=== PATIENT | male | born 1945 | race Caucasian/White ===

== ENCOUNTER 2017-04-01 07:47 | Emergency (ER) | payer MEDICARE, BC ==
--- NOTE | 2017-04-01 08:40 | EDM.PDOC ---
ED HPI GENERAL MEDICAL PROBLEM - General Chief Complaint: General Stated Complaint: 'feed wagon attacked me" Time Seen by Provider: 04/01/17 08:29 Source of Information: Reports: Patient History Limitations: Reports: Other (Very poor history from patient, cannot recall specific diagnoses or medications. ) - History of Present Illness INITIAL COMMENTS - FREE TEXT/NARRATIVE: Patient comes in complaining of soreness in left shoulder and left upper leg area that developed after an incident trying to move a feed wagon yesterday. Patient stated that while attempting to maneuver a feed wagon by pulling on a pole, the wagon got stuck and the pole jerked, knocking patient to the ground. No LOC. No significant initial pain per patient. Pain began to develop over an hour later. Worse when he woke up this morning. Points to left pectoral area and left upper leg/medial muscles when asked where he is sore. Earlier he had told nurse that pain was 8/10. Did have slight limp when ambulating, favoring left leg. Drove self to ER. Denies hitting head. No neck pain. No spinal pain. No pelvic pain. Denies bruising/abrasions/lacerations. Very vague about past medical history. Does not know medications. Says BP is usually around 130/80-frederic when asked as he was noted to have systolic reading of 170 in ER. Left Upper Chest Pain Score (Numeric/FACES): 8 - Related Data Allergies Allergy/AdvReac Type Severity Reaction Status Date / Time Unable to Assess Allergy Verified 04/01/17 09:33 Home Meds: Home Meds Carvedilol 12.5 mg PO BID 04/01/17 [History] Cyclobenzaprine [Flexeril] 10 mg PO BID PRN #8 tablet 04/01/17 [Rx] Finasteride 5 mg PO DAILY 04/01/17 [History] Hydroxychloroquine [Plaquenil] 200 mg PO DAILY 04/01/17 [History] Insulin Glarg,Human.Rec.Analog [LantUS Solostar] 16 units SQ BEDTIME 04/01/17 [ History] Levothyroxine [Synthroid] 88 mcg PO ACBREAKFAST 04/01/17 [History] Losartan Potassium 25 mg PO DAILY 04/01/17 [History] Omeprazole 20 mg PO DAILY 04/01/17 [History] Simvastatin [Zocor] 10 mg PO BEDTIME 04/01/17 [History] Tamsulosin [Flomax] 1 cap PO DAILY 04/01/17 [History] glipiZIDE [Glipizide Xl] 20 mg PO DAILY 04/01/17 [History] traMADol [Ultram] 50 mg PO Q6H PRN #16 tablet 04/01/17 [Rx] Past Medical History Cardiovascular History: Reports: CAD, High Cholesterol, Hypertension Gastrointestinal History: Reports: GERD Genitourinary History: Reports: BPH Endocrine/Metabolic History: Reports: Hypothyroidism, IDDM Social & Family History - Tobacco Use Smoking Status *Q: Never Smoker Second Hand Smoke Exposure: No - Caffeine Use Caffeine Use: Reports: None - Recreational Drug Use Recreational Drug Use: No ED ROS GENERAL - Review of Systems Review Of Systems: See Below Constitutional: Reports: No Symptoms HEENT: Reports: No Symptoms Respiratory: Reports: No Symptoms. Denies: Shortness of Breath, Pleuritic Chest Pain Cardiovascular: Reports: Chest Pain (left pectoral pain, worse with movement), Edema (chronic, stable per patient). Denies: Lightheadedness GI/Abdominal: Reports: No Symptoms : Reports: No Symptoms Musculoskeletal: Reports: Back Pain (diffuse soreness bilateral upper back, left pectoral pain, left upper leg pain), Muscle Pain, Muscle Stiffness. Denies : Neck Pain, Arm Pain, Hand Pain, Foot Pain, Joint Swelling Skin: Reports: No Symptoms Neurological: Reports: No Symptoms Psychiatric: Reports: No Symptoms ED EXAM, GENERAL - Physical Exam Exam: See Below Exam Limited By: No Limitations General Appearance: Alert, No Apparent Distress (resting comfortably in bed. ), Other (poor hygiene, disheveled appearance) Eye Exam: Bilateral Eye: EOMI, PERRL Ears: Normal External Exam Nose: No: Nasal Swelling, Nasal Drainage Throat/Mouth: Normal Lips, Normal Voice, No Airway Compromise Head: Atraumatic, Normocephalic. No: Facial Swelling, Facial Tenderness Neck: Normal Inspection, Supple, Non-Tender, Full Range of Motion Respiratory/Chest: No Respiratory Distress, No Accessory Muscle Use, Crackles ( very faint/sparse crackles at bases bilaterally), Other (Tender with palpation over left pectoral area). No: Rhonchi, Wheezing Cardiovascular: Normal Peripheral Pulses, Regular Rate, Rhythm, No Murmur Peripheral Pulses: 2+: Radial (L), Radial (R) GI/Abdominal: Normal Bowel Sounds, Soft, Non-Tender, No Distention, Hernia ( umbilical) (Male) Exam: Deferred Rectal (Males) Exam: Deferred Back Exam: Paraspinal Tenderness (mild discomfort with palpation of bilateral soft tissue in upper half thoracic area). No: CVA Tenderness (L), CVA Tenderness (R), Vertebral Tenderness Extremities: Normal Range of Motion, Non-Tender, Normal Capillary Refill, Pedal Edema (bilateral, mildly pitting), Other (Some tenderness with palpation of left hip adductors. Pelvis stable. No tenderness with palpation over points of hips. Mildly tender proximal quadriceps. Good ROM bilaterally shoulders and hips. ). No: Joint Swelling, Limited Range of Motion Neurological: Alert, Oriented, Normal Cognition, No Motor/Sensory Deficits, Abnormal Gait (favors left leg) Psychiatric: Normal Affect, Normal Mood Skin Exam: Warm, Dry, Intact, Normal Color EKG INTERPRETATION EKG Date: 04/01/17 Time: 08:00 Rhythm: NSR Rate (Beats/Min): 62 [place]: LAD-Left [place] Deviation P-Wave: Present QRS: Wide ST-T: Normal QT: Normal Comparison: NA - No Prior EKG Course - Vital Signs Last Recorded V/S: Last Vital Signs Temp 36.8 C 04/01/17 09:05 Pulse 62 04/01/17 09:05 Resp 20 04/01/17 09:05 BP 164/70 H 04/01/17 09:05 Pulse Ox 95 04/01/17 09:05 - Orders/Labs/Meds Orders: Active Orders 24 hr Category Date Time Status EKG Documentation Completion [RC] ASDIRECTED Care 04/01/17 08:10 Active Chest 2V [CR] Stat Exams 04/01/17 08:10 Taken - Radiology Interpretation Free Text/Narrative:: Chest xray showed now sign of pneumothorax. Compared to previous chest film. Old compression fracture noted on lateral. Increased heart size, pulmonary fibrosis noted. Minimal change director time noted. - Re-Assessments/Exams Free Text/Narrative Re-Assessment/Exam: Suspect contusions and soft tissue injury based on history and exam. No medications given to patient in ER as he has to drive home. Limited number of Tramadol and Flexeril given. Patient is to rest and avoid strenuous activity over the weekend. It is noted that his BP is a bit elevated today, suspect that is due to patient discomfort from the fall. However he will need to have his blood pressure rechecked next week to make certain it falls back to its usual level. This was discussed with the patient. He should also be seen again for today's complaint if no improvement is gained over the next 48 hours. He knows to return to the ER if there is sudden worsening of problems. Precautions reviewed prior to discharge. Patient is agreeable with this plan. Departure - Departure Time of Disposition: 08:56 Disposition: Home, Self-Care 01 Condition: Good Clinical Impression: Multiple contusions Fall Qualifiers: Encounter type: initial encounter Qualified Code(s): W19.XXXA - Unspecified fall, initial encounter Hypertension Qualifiers: Hypertension type: essential hypertension Qualified Code(s): I10 - Essential ( primary) hypertension - Discharge Information Prescriptions: Cyclobenzaprine [Flexeril] 10 mg PO BID PRN #8 tablet PRN Reason: Muscle Spasm traMADol [Ultram] 50 mg PO Q6H PRN #16 tablet PRN Reason: Pain Instructions: Contusion Referrals: Messi Heredia PA [Primary Care Provider] - Forms: ED Department Discharge Additional Instructions: Rest, gentle activity today and tomorrow. Ice sore areas. Follow up Monday or Monday with your clinic if pain has not improved. Follow up in the ER if you have sudden worsening problems. - My Orders Last 24 Hours: My Active Orders 04/01/17 08:10 EKG Documentation Completion [RC] ASDIRECTED Chest 2V [CR] Stat - Assessment/Plan Last 24 Hours: My Active Orders 04/01/17 08:10 EKG Documentation Completion [RC] ASDIRECTED Chest 2V [CR] Stat
[2017-04-01 09:39] VITALS: BP 164/70
== END 2017-04-01 09:22 | disposition home or self-care (01) ==
LOC: LL.ED 07:47
DX: T14.8 Other injury of unspecified body region (principal); I10 Essential (primary) hypertension; E78.00 Pure hypercholesterolemia, unspecified; E11.9 Type 2 diabetes mellitus without complications; K21.9 Gastro-esophageal reflux disease without esophagitis; E03.9 Hypothyroidism, unspecified; I25.10 Atherosclerotic heart disease of native coronary artery without angina pectoris; Z79.4 Long term (current) use of insulin; Z79.84 Long term (current) use of oral hypoglycemic drugs; Z79.899 Other long term (current) drug therapy
CPT/HCPCS: 71020; 93005; 93010; 99284

== ENCOUNTER 2017-06-22 11:30 | Day surgery (SDC) | payer MEDICARE, BC ==
[~2017-06-22 11:30] MED LIST: Lactated Ringers 1,000 ML IV SCH; Sodium Chloride 0.9% 10 ML Syringe FLUSH PRN
--- NOTE | 2017-06-22 12:25 | PCM.HPR ---
H & P Addendum review - H & P Addendum Review Date of Original H & P: 06/06/17 Date Reviewed: 06/22/17 Time Reviewed: 12:25 Patient was Examined: No Changes
[2017-06-22] MEDS ORDERED: Propofol 200 MG/20 ML SDV ONE ×2 (12:29→12:32)
[2017-06-22] MEDS ORDERED: fentaNYL 100 MCG/2 ML SDV ONE ×2 (12:29→12:32)
[2017-06-22] MEDS ORDERED: Midazolam 1 MG/ML 2 ML SDV ONE ×2 (12:29→12:32)
--- NOTE | 2017-06-22 13:11 | PCM.OPNOTE ---
- General Post-Op/Procedure Note Date of Surgery/Procedure: 06/22/17 Operative Procedure(s): EGD. Colonoscopy Findings: Chronic Gastritis Normal Colon Pre Op Diagnosis: GERD. Colon Screening Post-Op Diagnosis: Same Anesthesia Technique: BRODERICK Primary Surgeon: Cesar Purvis Anesthesia Provider: Safia Jensen Complications: None Condition: Good
[2017-06-22 13:24] VITALS: BP 150/62
--- NOTE | 2017-06-22 19:49 | OR ---
Date of Procedure: 06/22/2017 PREOPERATIVE DIAGNOSES: 1. Gastroesophageal reflux disease. 2. Colon screening. POSTOPERATIVE DIAGNOSES: 1. Chronic gastritis. 2. Normal colonoscopy. PROCEDURES PERFORMED: 1. EGD. 2. Colonoscopy. ANESTHESIA: IV sedation. DESCRIPTION OF PROCEDURE: The patient was brought to the procedure room, where he was placed on his left side and IV sedation administered. Digital rectal exam was performed, which was normal. Colonoscope was inserted and advanced to the level of the cecum without difficulty. Cecal position was confirmed by identifying the appendiceal lumen and ileocecal valve. Prep was good, and surfaces were well visualized. Upon withdrawing the scope, the ascending, transverse, and descending colon were normal in appearance. Sigmoid colon and rectum were normal. Retroflexion was normal. Air was removed, and the scope withdrawn. The patient tolerated this portion of the procedure well. Next, upper endoscopy was performed after oral bite block was placed. Upper endoscope was advanced into the esophagus under direct vision without difficulty. Vocal cords were viewed and were normal. Scope was advanced to the third portion of the duodenum. Duodenum and pylorus were normal. Antrum was normal. Body of the stomach had multiple hyperplastic polyps consistent with some chronic gastritis and proton pump inhibitor use. No ulcers, erosions, or other abnormalities were noted. Retroflexion was normal. Air was removed, and the scope withdrawn through the esophagus, which appeared normal. There was no evidence of reflux esophagitis. The patient tolerated the procedures well and returned to recovery in stable condition. The patient's symptoms are well controlled on his current medications. We will have him remain on them. I do not feel any further colon screening is necessary since he will be 81 in 10 years. TOMA REYNA MD /[id number]
== END 2017-06-22 14:40 | disposition home or self-care (01) ==
LOC: LL.SDS 11:30
PROVIDERS: ATTEND Surgery
DX: Z12.11 Encounter for screening for malignant neoplasm of colon (principal); K31.7 Polyp of stomach and duodenum; I10 Essential (primary) hypertension; E11.42 Type 2 diabetes mellitus with diabetic polyneuropathy; J44.9 Chronic obstructive pulmonary disease, unspecified; I25.10 Atherosclerotic heart disease of native coronary artery without angina pectoris; N40.0 Benign prostatic hyperplasia without lower urinary tract symptoms; K21.9 Gastro-esophageal reflux disease without esophagitis; E03.8 Other specified hypothyroidism; E06.3 Autoimmune thyroiditis; E03.0 Congenital hypothyroidism with diffuse goiter; Z88.8 Allergy status to other drugs, medicaments and biological substances; Z91.018 Allergy to other foods; Z91.010 Allergy to peanuts; Z95.1 Presence of aortocoronary bypass graft; Z98.890 Other specified postprocedural states; Z79.82 Long term (current) use of aspirin; Z79.899 Other long term (current) drug therapy; Z79.4 Long term (current) use of insulin
CPT/HCPCS: 43235; G0121; J2250; J2704; J3010; J7120; 00740

== ENCOUNTER 2017-08-02 07:51 | Observation (INO) | payer MEDICARE, BC ==
[~2017-08-02 07:51] MED LIST changes: -Lactated Ringers 1,000 ML IV SCH
[2017-08-02] MEDS ORDERED: Lactated Ringers 1,000 ML IV SCH (08:00)
[2017-08-02] MEDS ORDERED: Propofol 200 MG/20 ML SDV ONE ×2 (08:20→08:30)
[2017-08-02] MEDS ORDERED: Midazolam 1 MG/ML 2 ML SDV ONE ×2 (08:20→08:30)
[2017-08-02] MEDS ORDERED: fentaNYL 100 MCG/2 ML SDV ONE ×2 (08:20→08:30)
[2017-08-02] MEDS ORDERED: ceFAZolin 1 GM Vial ONE (08:30)
[2017-08-02] MEDS ORDERED: Bupivacaine 0.75%/D5W 2 ML Amp ONE (08:30)
[2017-08-02] MEDS ORDERED: Lidocaine 2% HCl 11 ML Jelly Filled Syringe TOP ONE (09:15)
[2017-08-02] MEDS ORDERED: Ondansetron 4 MG/2 ML SDV IVPUSH PRN (14:00)
[2017-08-02] MEDS ORDERED: Morphine 2 MG/ML Syringe IVPUSH PRN (14:00)
[2017-08-02] MEDS ORDERED: Sodium Chloride 0.9% 1,000 ML IV SCH (14:00)
--- NOTE | 2017-08-02 14:51 | PCM.HP ---
H&P History of Present Illness - General Date of Service: 08/02/17 Admit Problem/Dx: Admission Diagnosis/Problem Admission Diagnosis/Problem Transurethral prostatectomy Source of Information: Patient History Limitations: Reports: No Limitations - History of Present Illness Initial Comments - Free Text/Narative: Patient admitted for overnight observation after TURP procedure performed by . - Related Data Allergies/Adverse Reactions: Allergies Allergy/AdvReac Type Severity Reaction Status Date / Time peanut Allergy Severe Anaphylactic Verified 08/02/17 08:20 Shock atorvastatin Allergy Muscle Verified 08/02/17 08:20 Aches pravastatin Allergy Muscle Verified 08/02/17 08:20 Aches lettuce Allergy Severe GI Uncoded 08/02/17 08:20 intolerence, Diarrhea nuts Allergy Severe Airway Uncoded 08/02/17 08:20 Tightness Home Medications: Home Meds Carvedilol 12.5 mg PO BID 04/01/17 [History] Finasteride 5 mg PO DAILY 04/01/17 [History] Hydroxychloroquine [Plaquenil] 200 mg PO BID 04/01/17 [History] Levothyroxine [Synthroid] 88 mcg PO ACBREAKFAST 04/01/17 [History] Omeprazole 20 mg PO DAILY 04/01/17 [History] Simvastatin [Zocor] 10 mg PO BEDTIME 04/01/17 [History] glipiZIDE [Glipizide Xl] 20 mg PO DAILY 04/01/17 [History] Furosemide [Lasix] 20 mg PO 08,12 06/22/17 [History] Multivitamin [Multi-Day Vitamins] 1 each PO DAILY 06/22/17 [History] Nitroglycerin 0.4 mg SL ASDIRECTED PRN 06/22/17 [History] Hydrocodone/Acetaminophen [Hydrocodon-Acetaminophen 5-325] 1 each PO Q8H PRN 04/10 [History] Insulin Detemir [Levemir] 16 unit SUBCUT BEDTIME 08/01/17 [History] Losartan [Cozaar] 25 mg PO DAILY 08/01/17 [History] Lactated Ringers [Ringers, Lactated] 1,000 ml IV ASDIRECTED bag 08/02/17 [Rx] Sodium Chloride 0.9% [Saline Flush] 10 ml FLUSH ASDIRECTED PRN syringe [Rx] Past Medical History HEENT History: Reports: Other (See Below) Other HEENT History: Has reading glasses. Missing multiplle teeth. No dentures. Pt. has difficulty hearing. No hearing aides Cardiovascular History: Reports: Bypass, CAD, Hypertension, [place] Respiratory History: Reports: COPD Gastrointestinal History: Reports: Diverticulosis Genitourinary History: Reports: Retention, Urinary Musculoskeletal History: Reports: Osteoarthritis Neurological History: Reports: Neuropathy, Peripheral Psychiatric History: Reports: None Endocrine/Metabolic History: Reports: Diabetes, Type II Hematologic History: Reports: None Immunologic History: Reports: None Oncologic (Cancer) History: Reports: Squamous Cell Carcinoma Dermatologic History: Reports: Other (See Below) Other Dermatologic History: squamous cell - Past Surgical History HEENT Surgical History: Reports: Cataract Surgery Cardiovascular Surgical History: Reports: Coronary Artery Bypass GI Surgical History: Reports: Colonoscopy Social & Family History - Tobacco Use Smoking Status *Q: Never Smoker Second Hand Smoke Exposure: No - Caffeine Use Caffeine Use: Reports: Coffee - Recreational Drug Use Recreational Drug Use: No H&P Review of Systems - Review of Systems: Review Of Systems: ROS reveals no pertinent complaints other than HPI. Exam - Exam Exam: See Below - Vital Signs Vital Signs: Last Vital Signs Temp 35.5 C 08/02/17 10:00 Pulse 62 08/02/17 10:50 Resp 16 08/02/17 10:50 BP 150/74 H 08/02/17 10:50 Pulse Ox 95 08/02/17 10:50 Weight: 108.862 kg - Exam General: Alert, Oriented, Cooperative HEENT: Conjunctiva Clear, EACs Clear, EOMI, Hearing Intact, Mucosa Moist & [place] , Nares Patent, Pupils Equal, Pupils Reactive Neck: Supple, Trachea Midline Lungs: Normal Respiratory Effort, Other (very faint, fine rales inspiration bilaterally. ) Cardiovascular: Regular Rate, Regular Rhythm GI/Abdominal Exam: Normal Bowel Sounds, Soft, Non-Tender, No Distention (Male) Exam: Deferred Rectal (Males) Exam: Deferred Back Exam: Normal Inspection Extremities: Normal Range of Motion, Non-Tender, Normal Capillary Refill, Other (Has darkening coloration of lower extremities/dry skin/loss of hair consistent with peripheral vascular changes) Peripheral Pulses: 2+: Radial (L), Radial (R), Dorsalis Pedis (L), Dorsalis Pedis (R) Skin: Warm, Dry, Intact Neuro Extensive - Mental Status: Alert, Oriented x3, Normal Mood/Affect, Normal Cognition, Memory Intact Psychiatric: Alert, Normal Affect, Normal Mood - Patient Data Lab Results Last 24 hrs: Laboratory Results - last 24 hr 08/02/17 Range/Units 08:40 POC Glucose 101 (65-110) mg/dl *Q Meaningful Use (ADM) - VTE *Q VTE Criteria *Q: - Stroke *Q Stroke Criteria *Q: - AMI *Q AMI Criteria *Q: - Problem List (1) S/P TURP SNOMED Code(s): 660048089 ICD Code: Z90.79 - ACQUIRED ABSENCE OF OTHER GENITAL ORGAN(S) Status: Acute Priority: High Current Visit: Yes Onset Date: 08/02/17 Problem Details: S/P TURP performed today. wants patient monitored overnight. Continuous bladder irrigation during stay. Elizabeth can be removed tomorrow prior to discharge home. (2) IDDM (insulin dependent diabetes mellitus) SNOMED Code(s): 03851066 ICD Code: E11.9 - TYPE 2 DIABETES MELLITUS WITHOUT COMPLICATIONS; Z79.4 - DETENTION (CURRENT) USE OF INSULIN Status: Chronic Priority: Low Current Visit: No Problem Details: Stable by history (3) GERD (gastroesophageal reflux disease) SNOMED Code(s): 828818646 ICD Code: K21.9 - GASTRO-ESOPHAGEAL REFLUX DISEASE WITHOUT ESOPHAGITIS Status: Chronic Priority: Low Current Visit: No Problem Details: Stable by history Qualifiers: Esophagitis presence: esophagitis presence not specified Qualified Code(s) : K21.9 - Gastro-esophageal reflux disease without esophagitis (4) CAD (coronary artery disease) SNOMED Code(s): 69332255 ICD Code: I25.10 - ATHSCL HEART DISEASE OF [place] CORONARY ARTERY W/O ANG PCTRS Status: Chronic Priority: Low Current Visit: No Problem Details: stable by history Qualifiers: Coronary Disease-Associated Artery/Lesion type: bypass graft (5) Dyslipidemia SNOMED Code(s): 178047312 ICD Code: E78.5 - HYPERLIPIDEMIA, UNSPECIFIED Status: Chronic Priority: Low Current Visit: No Problem Details: Stable by history (6) Rheumatoid arthritis SNOMED Code(s): 14300700 ICD Code: M06.9 - RHEUMATOID ARTHRITIS, UNSPECIFIED Status: Chronic Priority: Low Current Visit: No Problem Details: Stable by history Qualifiers: Rheumatoid factor presence: unspecified presence Laterality: unspecified laterality (7) Hypertension SNOMED Code(s): 66839159 ICD Code: I10 - ESSENTIAL (PRIMARY) HYPERTENSION Status: Chronic Priority : Low Current Visit: No Problem Details: Stable by history Qualifiers: Hypertension type: essential hypertension Qualified Code(s): I10 - Essential (primary) hypertension Problem List Initiated/Reviewed/Updated: Yes Orders Last 24hrs: Active Orders 24 hr Category Date Time Status Admission Status [Patient Status] [ADT] Routine ADT 08/02/17 11:53 Active Accu Check [Blood Glucose Check, Bedside] [RC] Care 08/02/17 13:57 Active QIDACANDBED Antiembolic Devices [RC] PER UNIT ROUTINE Care 08/02/17 13:58 Active Blood Glucose Check, Bedside [RC] ONETIME Care 08/02/17 08:00 Active Peripheral IV Care [RC] . DIRECTED Care 08/01/17 15:16 Active Verify Patient Consent Obtain [RC] ASDIRECTED Care 08/02/17 08:00 Active Vital Signs [RC] Q4HR Care 08/02/17 14:00 Active ADA Diabetic [[place] [employer] Diet] [DIET Diet 08/02/17 Dinner Active ] Low Sodium [Sodium Restricted Diet] [DIET] Diet 08/02/17 Dinner Active Lactated Ringers [Ringers, Lactated] 1,000 ml Med 08/02/17 08:00 Active IV ASDIRECTED Morphine Med 08/02/17 14:00 Active 2 mg IVPUSH Q2H PRN Ondansetron [Zofran] Med 08/02/17 14:00 Active 4 mg IVPUSH Q6H PRN Sodium Chloride 0.9% [Normal Saline] 1,000 ml Med 08/02/17 14:00 Active IV ASDIRECTED Sodium Chloride 0.9% [Saline Flush] Med 08/01/17 15:13 Active 10 ml FLUSH ASDIRECTED PRN Peripheral IV Insertion Adult [OM.PC] Routine Oth 08/02/17 08:00 Ordered ASHLEY Hose [Antiembolic Hose] [OM.PC] Routine Oth 08/02/17 13:58 Ordered Medication Orders Lactated Ringer's (Ringers, Lactated) 1,000 mls @ 70 mls/hr IV ASDIRECTED [facility] Last Admin: 08/02/17 08:38 Dose: 70 mls/hr Sodium Chloride (Normal Saline) 1,000 mls @ 75 mls/hr IV ASDIRECTED [facility] Morphine Sulfate (Morphine) 2 mg IVPUSH Q2H PRN PRN Reason: Pain Ondansetron HCl (Zofran) 4 mg IVPUSH Q6H PRN PRN Reason: Nausea Sodium Chloride (Saline Flush) 10 ml FLUSH ASDIRECTED PRN PRN Reason: Keep Vein Open Assessment/Plan Comment:: Continuous bladder irrigation overnight. Anticipate discharge home tomorrow. Pain control.
[2017-08-02] MEDS ORDERED: Nitroglycerin 0.4 MG Tab.SL SL PRN (15:00)
[2017-08-02] MEDS: Acetaminophen/HYDROcodone 325-5 MG Tab PO PRN (16:41)
[2017-08-02] MEDS: Hydroxychloroquine 200 MG Tab PO SCH (17:47)
[2017-08-02] MEDS: Carvedilol 12.5 MG Tab PO SCH (17:47)
[2017-08-02] MEDS: Simvastatin 10 MG Tab PO SCH (20:40)
[2017-08-02] MEDS: Insulin Detemir 100 Units/ML 3 ML Pen SUBCUT SCH (20:41)
[2017-08-02] MEDS: Acetaminophen 325 MG Tab PO PRN (22:11)
[2017-08-03] MEDS: Acetaminophen/HYDROcodone 325-5 MG Tab PO PRN (02:13)
[2017-08-03] MEDS: Levothyroxine 88 MCG Tab PO SCH (07:40)
[2017-08-03] MEDS: Carvedilol 12.5 MG Tab PO SCH ×2 (07:40→17:39)
[2017-08-03] MEDS: Losartan 50 MG Tab PO SCH (07:41)
[2017-08-03] MEDS: glipiZIDE 5 MG Tab.ER PO SCH (07:42)
[2017-08-03] MEDS: Hydroxychloroquine 200 MG Tab PO SCH ×2 (07:42→17:39)
[2017-08-03] MEDS: Omeprazole 20 MG Cap.CR PO SCH (07:42)
[2017-08-03] MEDS: Furosemide 20 MG Tab PO SCH ×2 (07:42→11:10)
[2017-08-03] MEDS: Multivitamin Tab PO SCH (07:43)
[2017-08-03] MEDS: Finasteride 5 MG Tab PO SCH (07:43)
[2017-08-03] MEDS: Acetaminophen 325 MG Tab PO PRN (08:18)
--- NOTE | 2017-08-03 12:17 | OR ---
Date of Procedure: 08/02/2017 PREOPERATIVE DIAGNOSIS: Urinary retention. POSTOPERATIVE DIAGNOSIS: Urinary retention. PROCEDURE: Transurethral resection of the prostate. ANESTHESIA: Spinal. COMPLICATION: None. SPECIMEN: Prostate. DRAINS: The 22-Serbian three-way Elizabeth catheters to CBI. BLOOD LOSS: Approximately, 100 mL. WHAT WAS DONE: The patient was placed on the operating table in the lithotomy position under spinal anesthesia. He was prepped and draped sterilely. Xylocaine gel was injected per urethra. A 27-Serbian continuous-flow resectoscope sheath was inserted. He was noted to have a modest prostate with a very large median bar. I began at the 12 o'clock position and found the capsular fibers. I followed not so much the capsule as the fibers of the bladder neck counter-clockwise, until I encountered the median bar. I then took down the median bar, found the circular fibers at the bladder neck, and smoothened the floor. I then just verified the surrounding tissues, debulked, and smoothened the contours of right and lateral lobes. I then tapered the apex. The bladder was irrigated free of fragments. Visual inspection showed no fragments remaining. I did very methodically through the prostate inspect and cauterize. I did resect some additional apical tissue, and those strips were removed. The resectoscope was removed. The Elizabeth catheter was inserted using the Mandarin catheter guide, placed irrigation under gravity. He tolerated this procedure without difficulty. TOMA Hart MD /[id number]
--- NOTE | 2017-08-03 17:41 | PCM.PN ---
- General Info Date of Service: 08/03/17 Admission Dx/Problem (Free Text): Admission Diagnosis/Problem Admission Diagnosis/Problem Transurethral prostatectomy Subjective Update: Patient feels about the same as yesterday. Uncomfortable due to recent TURP. Functional Status: Reports: Pain Controlled, Tolerating Diet, Ambulating. Denies: Urinating - Review of Systems General: Reports: Fatigue. Denies: Fever HEENT: Reports: No Symptoms Pulmonary: Reports: No Symptoms Cardiovascular: Reports: No Symptoms Gastrointestinal: Reports: No Symptoms Genitourinary: Reports: Retention (unable to urinate after Elizabeth pulled) Musculoskeletal: Reports: No Symptoms Skin: Reports: No Symptoms Neurological: Reports: No Symptoms Psychiatric: Reports: No Symptoms - Patient Data Vitals - Most Recent: Last Vital Signs Temp 37.3 C 08/03/17 17:02 Pulse 81 08/03/17 17:02 Resp 16 08/03/17 17:02 BP 65/33 L 08/03/17 17:03 Pulse Ox 95 08/03/17 17:02 Weight - Most Recent: 108.862 kg I&O - Last 24 Hours: Intake & Output 08/03/17 08/03/17 08/03/17 06:59 14:59 22:59 Intake Total 1508 898 Output Total 1250 650 Balance 258 248 Lab Results Last 24 Hours: Laboratory Results - last 24 hr 08/02/17 08/03/17 08/03/17 Range/Units 20:40 07:39 11:09 POC Glucose 265 H* 92 213 H (65-110) mg/dl 08/03/17 Range/Units 17:28 POC Glucose 204 H (65-110) mg/dl Med Orders - Current: Current Medications Acetaminophen (Tylenol) 650 mg PO Q4H PRN PRN Reason: Pain Last Admin: 08/03/17 08:18 Dose: 650 mg Hydrocodone Bitart/Acetaminophen ([place] 325-5 Mg) 1 tab PO Q8H PRN PRN Reason: Pain Last Admin: 08/03/17 02:13 Dose: 1 tab Carvedilol (Coreg) 12.5 mg PO BID [facility] Last Admin: 08/03/17 07:40 Dose: 12.5 mg Finasteride (Proscar) 5 mg PO DAILY [facility] Last Admin: 08/03/17 07:43 Dose: 5 mg Furosemide (Lasix) 20 mg PO BIDDIURETIC [facility] Last Admin: 08/03/17 11:10 Dose: 20 mg Glipizide (Glucotrol Xl) 20 mg PO DAILY [facility] Last Admin: 08/03/17 07:42 Dose: 20 mg Hydroxychloroquine Sulfate (Plaquenil) 200 mg PO BID [facility] Last Admin: 08/03/17 07:42 Dose: 200 mg Insulin Detemir (Levemir) 16 unit SUBCUT BEDTIME [facility] Last Admin: 08/02/17 20:41 Dose: 16 unit Levothyroxine Sodium (Synthroid) 88 mcg PO ACBREAKFAST [facility] Last Admin: 08/03/17 07:40 Dose: 88 mcg Losartan Potassium (Cozaar) 25 mg PO DAILY [facility] Last Admin: 08/03/17 07:41 Dose: 25 mg Morphine Sulfate (Morphine) 2 mg IVPUSH Q2H PRN PRN Reason: Pain Multivitamins/Minerals/Vitamin C (Tab-A-Ha) 1 tab PO DAILY [facility] Last Admin: 08/03/17 07:43 Dose: 1 tab Nitroglycerin (Nitrostat) 0.4 mg SL ASDIRECTED PRN PRN Reason: Chest Pain Omeprazole (Omeprazole) 20 mg PO DAILY [facility] Last Admin: 08/03/17 07:42 Dose: 20 mg Ondansetron HCl (Zofran) 4 mg IVPUSH Q6H PRN PRN Reason: Nausea Simvastatin (Zocor) 10 mg PO BEDTIME [facility] Last Admin: 08/02/17 20:40 Dose: 10 mg Sodium Chloride (Saline Flush) 10 ml FLUSH ASDIRECTED PRN PRN Reason: Keep Vein Open Discontinued Medications Bupivacaine HCl/Dextrose ([place] 0.75% Spinal) 1.6 ml .ROUTE .STK-MED ONE Stop: 08/02/17 08:31 Cefazolin Sodium (Ancef) 2 gm .ROUTE .STK-MED ONE Stop: 08/02/17 08:31 Fentanyl (Sublimaze) Confirm Administered Dose 100 mcg .ROUTE .STK-MED ONE Stop: 08/02/17 08:21 Last Admin: 08/02/17 14:04 Dose: Not Given Fentanyl (Sublimaze) 100 mcg .ROUTE .STK-MED ONE Stop: 08/02/17 08:31 Lactated Ringer's (Ringers, Lactated) 1,000 mls @ 70 mls/hr IV ASDIRECTED [facility] Last Admin: 08/02/17 08:38 Dose: 70 mls/hr Sodium Chloride (Normal Saline) 1,000 mls @ 75 mls/hr IV ASDIRECTED [facility] Last Admin: 08/02/17 18:59 Dose: 75 mls/hr Lidocaine HCl (Glydo) 11 ml TOP .STK-MED ONE Stop: 08/02/17 09:16 Last Admin: 08/02/17 09:15 Dose: 11 ml Lidocaine HCl (Xylocaine-Mpf 1%) 2 ml .ROUTE .STK-MED ONE Stop: 08/02/17 08:31 Midazolam HCl (Versed 1 Mg/Ml) Confirm Administered Dose 2 mg .ROUTE .STK-MED ONE Stop: 08/02/17 08:21 Last Admin: 08/02/17 14:05 Dose: Not Given Midazolam HCl (Versed 1 Mg/Ml) 2 mg .ROUTE .STK-MED ONE Stop: 08/02/17 08:31 Propofol (Diprivan 20 Ml) Confirm Administered Dose 400 mg .ROUTE .STK-MED ONE Stop: 08/02/17 08:21 Last Admin: 08/02/17 14:04 Dose: Not Given Propofol (Diprivan 20 Ml) 400 mg .ROUTE .STK-MED ONE Stop: 08/02/17 08:31 - Exam Quality Assessment: Urine Catheter General: Alert, Oriented, Cooperative, No Acute Distress HEENT: Pupils Equal, Pupils Reactive, EOMI, Mucous Membr. Moist/[place] Neck: Supple Lungs: Clear to Auscultation, Normal Respiratory Effort Cardiovascular: Regular Rate, Regular Rhythm GI/Abdominal Exam: Normal Bowel Sounds, Soft, Non-Tender, No Distention, No Mass (Male) Exam: Deferred Back Exam: No: CVA Tenderness (L), CVA Tenderness (R) Extremities: Normal Inspection, Normal Range of Motion, Non-Tender, No Pedal Edema, Normal Capillary Refill Peripheral Pulses: 2+: Radial (L), Radial (R) Skin: Warm, Dry Neurological: No New Focal Deficit Psy/Mental Status: Alert, Normal Affect, Normal Mood - Problem List & Annotations (1) S/P TURP SNOMED Code(s): 040938313 Code(s): Z90.79 - ACQUIRED ABSENCE OF OTHER GENITAL ORGAN(S) Status: Acute Priority: High Current Visit: Yes Onset Date: 08/02/17 Annotation/ Comment:: Elizabeth removed today. Patient unable to void. Needed to place new Elizabeth. Will reattempt Elizabeth removal tomorrow. 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 Status: Chronic Priority: Low Current Visit: No Annotation/Comment:: Stable by history (3) GERD (gastroesophageal reflux disease) SNOMED Code(s): 372468191 Code(s): K21.9 - GASTRO-ESOPHAGEAL REFLUX DISEASE WITHOUT ESOPHAGITIS Status: Chronic Priority: Low Current Visit: No Qualifiers: Esophagitis presence: esophagitis presence not specified Qualified Code(s) : K21.9 - Gastro-esophageal reflux disease without esophagitis Annotation/Comment:: Stable by history (4) CAD (coronary artery disease) SNOMED Code(s): 16917031 Code(s): I25.10 - ATHSCL HEART DISEASE OF [place] CORONARY ARTERY W/O ANG PCTRS Status: Chronic Priority: Low Current Visit: No Qualifiers: Coronary Disease-Associated Artery/Lesion type: bypass graft Annotation/Comment:: stable by history (5) Dyslipidemia SNOMED Code(s): 260822475 Code(s): E78.5 - HYPERLIPIDEMIA, UNSPECIFIED Status: Chronic Priority: Low Current Visit: No Annotation/Comment:: Stable by history (6) Rheumatoid arthritis SNOMED Code(s): 69280797 Code(s): M06.9 - RHEUMATOID ARTHRITIS, UNSPECIFIED Status: Chronic Priority: Low Current Visit: No Qualifiers: Rheumatoid factor presence: unspecified presence Laterality: unspecified laterality Annotation/Comment:: Stable by history (7) Hypertension SNOMED Code(s): 88380010 Code(s): I10 - ESSENTIAL (PRIMARY) HYPERTENSION Status: Chronic Priority : Low Current Visit: No Qualifiers: Hypertension type: essential hypertension Qualified Code(s): I10 - Essential (primary) hypertension Annotation/Comment:: Stable by history - Problem List Review Problem List Initiated/Reviewed/Updated: Yes - My Orders Last 24 Hours: My Active Orders 08/02/17 18:00 Carvedilol [Coreg] 12.5 mg PO BID Hydroxychloroquine [Plaquenil] 200 mg PO BID 08/02/17 20:00 Insulin Detemir [Levemir] 16 unit SUBCUT BEDTIME Simvastatin [Zocor] 10 mg PO BEDTIME 08/02/17 21:54 Acetaminophen [Tylenol] 650 mg PO Q4H PRN 08/02/17 Dinner ADA Diabetic [[place] [employer] Diet] [DIET] Low Sodium [Sodium Restricted Diet] [DIET] 08/03/17 07:30 Levothyroxine [Synthroid] 88 mcg PO ACBREAKFAST 08/03/17 08:00 Finasteride [Proscar] 5 mg PO DAILY Furosemide [Lasix] 20 mg PO BIDDIURETIC Losartan [Cozaar] 25 mg PO DAILY Multivitamins [Tab-A-Ha] 1 tab PO DAILY Omeprazole 20 mg PO DAILY glipiZIDE [Glucotrol XL] 20 mg PO DAILY 08/03/17 17:33 Urinary Catheter Assessment [RC] ASDIRECTED UA W/MICROSCOPIC [URIN] Routine 08/03/17 17:45 Elizabeth Catheter Insertion [Insert Urinary Catheter] [OM.PC] Q24H - Assessment Assessment:: 1 day s/p TURP. Continued issues with urinary retention. Unable to void on own after removal of Elizabeth this morning. Bladder scan showed more than 1000ml of retained urine. Straight cath performed. Patient observed. Found to again not be able to void. Elizabeth put back in place, over 1L of urine output immediately. - Plan Plan:: Keep Elizabeth in place overnight. Trial patient without Elizabeth again tomorrow. If he continues to be unable to void, plan at this time is to contact Urology and arrange followup on Monday as well as continued use of Elizabeth in patient over the weekend while swelling form TURP continues to improve. Patient is wearing TEDS and is ambulating. No Lovenox started at this time given planned discharge home tomorrow.
[2017-08-03] MEDS: Insulin Detemir 100 Units/ML 3 ML Pen SUBCUT SCH (20:21)
[2017-08-03] MEDS: Simvastatin 10 MG Tab PO SCH (20:23)
[2017-08-04] MEDS: Finasteride 5 MG Tab PO SCH (07:11)
[2017-08-04] MEDS: Levothyroxine 88 MCG Tab PO SCH (07:11)
[2017-08-04] MEDS: Multivitamin Tab PO SCH (07:12)
[2017-08-04] MEDS: Hydroxychloroquine 200 MG Tab PO SCH (07:12)
[2017-08-04] MEDS: Omeprazole 20 MG Cap.CR PO SCH (07:12)
[2017-08-04] MEDS: Furosemide 20 MG Tab PO SCH ×2 (07:12→11:05)
[2017-08-04] MEDS: glipiZIDE 5 MG Tab.ER PO SCH (07:12)
[2017-08-04] MEDS: Losartan 50 MG Tab PO SCH (07:13)
[2017-08-04] MEDS: Carvedilol 12.5 MG Tab PO SCH (07:17)
[2017-08-04 07:18] VITALS: BP 140/61
--- NOTE | 2017-08-04 11:30 | PCM.PN ---
- General Info Date of Service: 08/04/17 Functional Status: Reports: Pain Controlled, Tolerating Diet, New Symptoms - Review of Systems General: Reports: No Symptoms HEENT: Reports: No Symptoms Pulmonary: Reports: No Symptoms Cardiovascular: Reports: No Symptoms Gastrointestinal: Reports: No Symptoms Genitourinary: Reports: Retention Musculoskeletal: Reports: No Symptoms Skin: Reports: No Symptoms Neurological: Reports: No Symptoms Psychiatric: Reports: No Symptoms - Patient Data Vitals - Most Recent: Last Vital Signs Temp 98.4 F 08/04/17 07:00 Pulse 69 08/04/17 07:17 Resp 16 08/04/17 07:00 BP 140/61 08/04/17 07:17 Pulse Ox 95 08/04/17 07:00 Weight - Most Recent: 240 lb I&O - Last 24 Hours: Intake & Output 08/03/17 08/04/17 08/04/17 22:59 06:59 14:59 Intake Total 800 400 Output Total 1500 1050 Balance -1500 -250 400 Lab Results Last 24 Hours: Laboratory Results - last 24 hr 08/03/17 08/03/17 08/03/17 Range/Units 17:28 17:33 20:19 POC Glucose 204 H 228 H (65-110) mg/dl Specimen Type Urinblad Urine Color Urine Appearance Slightly cloudy Urine pH 6.0 (5.0-9.0) Ur Specific [place] 1.010 (1.005-1.030) Urine Protein Negative (NEGATIVE) mg/dL Urine Glucose (UA) Negative (NEGATIVE) mg/dL Urine Ketones Negative (NEGATIVE) mg/dL Urine Occult Blood Large H (NEGATIVE) Urine Nitrite Negative (NEGATIVE) Urine Bilirubin Negative (NEGATIVE) Urine Urobilinogen 0.2 (0.2-1.0) E.U./dL Ur Leukocyte Esterase Negative (NEGATIVE) Urine RBC Packed /HPF Urine WBC 0-5 /HPF Ur Epithelial Cells Few /LPF Urine Bacteria Rare (NONE TO FEW) /HPF 08/04/17 08/04/17 Range/Units 07:10 11:06 POC Glucose 128 H 261 H* (65-110) mg/dl Specimen Type Urine Color Urine Appearance Urine pH (5.0-9.0) Ur Specific [place] (1.005-1.030) Urine Protein (NEGATIVE) mg/dL Urine Glucose (UA) (NEGATIVE) mg/dL Urine Ketones (NEGATIVE) mg/dL Urine Occult Blood (NEGATIVE) Urine Nitrite (NEGATIVE) Urine Bilirubin (NEGATIVE) Urine Urobilinogen (0.2-1.0) E.U./dL Ur Leukocyte Esterase (NEGATIVE) Urine RBC /HPF Urine WBC /HPF Ur Epithelial Cells /LPF Urine Bacteria (NONE TO FEW) /HPF Med Orders - Current: Current Medications Acetaminophen (Tylenol) 650 mg PO Q4H PRN PRN Reason: Pain Last Admin: 08/03/17 08:18 Dose: 650 mg Hydrocodone Bitart/Acetaminophen ([place] 325-5 Mg) 1 tab PO Q8H PRN PRN Reason: Pain Last Admin: 08/03/17 02:13 Dose: 1 tab Carvedilol (Coreg) 12.5 mg PO BID [facility] Last Admin: 08/04/17 07:17 Dose: 12.5 mg Finasteride (Proscar) 5 mg PO DAILY [facility] Last Admin: 08/04/17 07:11 Dose: 5 mg Furosemide (Lasix) 20 mg PO BIDDIURETIC [facility] Last Admin: 08/04/17 11:05 Dose: 20 mg Glipizide (Glucotrol Xl) 20 mg PO DAILY [facility] Last Admin: 08/04/17 07:12 Dose: 20 mg Hydroxychloroquine Sulfate (Plaquenil) 200 mg PO BID [facility] Last Admin: 08/04/17 07:12 Dose: 200 mg Insulin Detemir (Levemir) 16 unit SUBCUT BEDTIME [facility] Last Admin: 08/03/17 20:21 Dose: 16 unit Levothyroxine Sodium (Synthroid) 88 mcg PO ACBREAKFAST [facility] Last Admin: 08/04/17 07:11 Dose: 88 mcg Losartan Potassium (Cozaar) 25 mg PO DAILY [facility] Last Admin: 08/04/17 07:13 Dose: 25 mg Morphine Sulfate (Morphine) 2 mg IVPUSH Q2H PRN PRN Reason: Pain Multivitamins/Minerals/Vitamin C (Tab-A-Ha) 1 tab PO DAILY [facility] Last Admin: 08/04/17 07:12 Dose: 1 tab Nitroglycerin (Nitrostat) 0.4 mg SL ASDIRECTED PRN PRN Reason: Chest Pain Omeprazole (Omeprazole) 20 mg PO DAILY [facility] Last Admin: 08/04/17 07:12 Dose: 20 mg Ondansetron HCl (Zofran) 4 mg IVPUSH Q6H PRN PRN Reason: Nausea Simvastatin (Zocor) 10 mg PO BEDTIME [facility] Last Admin: 08/03/17 20:23 Dose: 10 mg Sodium Chloride (Saline Flush) 10 ml FLUSH ASDIRECTED PRN PRN Reason: Keep Vein Open Discontinued Medications Bupivacaine HCl/Dextrose ([place] 0.75% Spinal) 1.6 ml .ROUTE .STK-MED ONE Stop: 08/02/17 08:31 Cefazolin Sodium (Ancef) 2 gm .ROUTE .[facility]-MED ONE Stop: 08/02/17 08:31 Fentanyl (Sublimaze) Confirm Administered Dose 100 mcg .ROUTE .ST-MED ONE Stop: 08/02/17 08:21 Last Admin: 08/02/17 14:04 Dose: Not Given Fentanyl (Sublimaze) 100 mcg .ROUTE .[facility]-MED ONE Stop: 08/02/17 08:31 Lactated Ringer's (Ringers, Lactated) 1,000 mls @ 70 mls/hr IV ASDIRECTED [facility] Last Admin: 08/02/17 08:38 Dose: 70 mls/hr Sodium Chloride (Normal Saline) 1,000 mls @ 75 mls/hr IV ASDIRECTED [facility] Last Admin: 08/02/17 18:59 Dose: 75 mls/hr Lidocaine HCl (Glydo) 11 ml TOP .ST-MED ONE Stop: 08/02/17 09:16 Last Admin: 08/02/17 09:15 Dose: 11 ml Lidocaine HCl (Xylocaine-Mpf 1%) 2 ml .ROUTE .ST-MED ONE Stop: 08/02/17 08:31 Midazolam HCl (Versed 1 Mg/Ml) Confirm Administered Dose 2 mg .ROUTE .ST-MED ONE Stop: 08/02/17 08:21 Last Admin: 08/02/17 14:05 Dose: Not Given Midazolam HCl (Versed 1 Mg/Ml) 2 mg .ROUTE .STK-MED ONE Stop: 08/02/17 08:31 Propofol (Diprivan 20 Ml) Confirm Administered Dose 400 mg .ROUTE .STK-MED ONE Stop: 08/02/17 08:21 Last Admin: 08/02/17 14:04 Dose: Not Given Propofol (Diprivan 20 Ml) 400 mg .ROUTE .STK-MED ONE Stop: 08/02/17 08:31 - Exam Quality Assessment: Urine Catheter General: Alert, Oriented HEENT: Pupils Equal, Pupils Reactive, EOMI, Mucous Membr. Moist/[place] Neck: Supple Lungs: Clear to Auscultation, Normal Respiratory Effort Cardiovascular: Regular Rate, Regular Rhythm GI/Abdominal Exam: Normal Bowel Sounds, Soft, Non-Tender, No Organomegaly, No Distention, No Abnormal Bruit, No Mass, Pelvis Stable (Male) Exam: Other (Gonzalez catheter in place) Back Exam: Normal Inspection, Full Range of Motion Extremities: Normal Inspection, Normal Range of Motion, Non-Tender, No Pedal Edema, Normal Capillary Refill - Problem List & Annotations (1) S/P TURP SNOMED Code(s): 921975149 Code(s): Z90.79 - ACQUIRED ABSENCE OF OTHER GENITAL ORGAN(S) Status: Acute Priority: High Current Visit: Yes Onset Date: 08/02/17 Annotation/ Comment:: Gonzalez removed today. Patient unable to void. Needed to place new Gonzalez. Will reattempt Gonzalez removal tomorrow. 08/04/17 tee [facility] urologist will be gonzalez cath. In for a week will discharge patient home on all his home ex follow-up with primary or myself in 1 week. - Problem List Review Problem List Initiated/Reviewed/Updated: Yes - My Orders Last 24 Hours: My Active Orders 08/04/17 11:14 Communication Order [RC] ROUTINE 08/04/17 11:15 Communication Order [RC] ASDIRECTED 08/04/17 11:16 Communication Order [RC] ASDIRECTED - Assessment Assessment:: 1 day s/p TURP. Continued issues with urinary retention. Unable to void on own after removal of Gonzalez this morning. Bladder scan showed more than 1000ml of retained urine. Straight cath performed. Patient observed. Found to again not be able to void. Gonzalez put back in place, over 1L of urine output immediately. - Plan Plan:: Keep Gonzalez in place overnight. Trial patient without Gonzalez again tomorrow. If he continues to be unable to void, plan at this time is to contact Urology and arrange followup on Monday as well as continued use of Gonzalez in patient over the weekend while swelling form TURP continues to improve. Patient is wearing TEDS and is ambulating. No Lovenox started at this time given planned discharge home tomorrow.
--- NOTE | 2017-08-04 11:42 | PCM.DCSUM1 ---
Discharge Summary - Hospital Course Free Text/Narrative:: Patient is a 71-year-old who is postop day 2 from TURP attempt at removal of Gonzalez yesterday unsuccessful Gonzalez reinserted patient's urine is clear now will discharge home with Gonzalez follow-up with primary or myself next week Physical exam Normocephalic atraumatic eyes PERRLA throat clear neck supple tympanic membranes within normal limits lungs clear no Rales rhonchi or wheezing heart regular rate and rhythm abdomen soft nontender no masses no organomegaly Gonzalez in place extremities no edema no cyanosis no clubbing Assessment status post TURP with flaccid bladder Plan we will discharge him home on all his medications he is to follow-up with primary care or myself next week - Discharge Data Discharge Date: 08/04/17 Discharge Disposition: Home, Self-Care 01 Condition: Good - Discharge Diagnosis/Problem(s) (1) S/P TURP SNOMED Code(s): 502602092 ICD Code: Z90.79 - ACQUIRED ABSENCE OF OTHER GENITAL ORGAN(S) Status: Acute Priority: High Current Visit: Yes Onset Date: 08/02/17 Problem Details: Gonzalez removed today. Patient unable to void. Needed to place new Gonzalez. Will reattempt Gonzalez removal tomorrow. 08/04/17 spoke with "Dr. Hart urologist will be gonzalez cath. In for a week will discharge patient home on all his home ex follow-up with primary or myself in 1 week. - Patient Instructions Diet: Low Sodium Activity: As Tolerated Driving: Do Not Drive Showering/Bathing: May Shower Notify Provider of: Fever, Increased Pain, Swelling and Redness, Nausea and/or Vomiting Other/Special Instructions: gonzalez catheter to be removed next week when visiting primary care provider - Discharge Plan Home Medications: Home Meds Carvedilol 12.5 mg PO BID 04/01/17 [History] Finasteride 5 mg PO DAILY 04/01/17 [History] Hydroxychloroquine [Plaquenil] 200 mg PO BID 04/01/17 [History] Levothyroxine [Synthroid] 88 mcg PO ACBREAKFAST 04/01/17 [History] Omeprazole 20 mg PO DAILY 04/01/17 [History] Simvastatin [Zocor] 10 mg PO BEDTIME 04/01/17 [History] glipiZIDE [Glipizide Xl] 20 mg PO DAILY 04/01/17 [History] Furosemide [Lasix] 20 mg PO ,12 06/22/17 [History] Multivitamin [Multi-Day Vitamins] 1 each PO DAILY 06/22/17 [History] Nitroglycerin 0.4 mg SL ASDIRECTED PRN 06/22/17 [History] Hydrocodone/Acetaminophen [Hydrocodon-Acetaminophen 5-325] 1 each PO Q8H PRN 04/10 [History] Insulin Detemir [Levemir] 16 unit SUBCUT BEDTIME 08/01/17 [History] Losartan [Cozaar] 25 mg PO DAILY 08/01/17 [History] Lactated Ringers [Ringers, Lactated] 1,000 ml IV ASDIRECTED bag 08/02/17 [Rx] Sodium Chloride 0.9% [Saline Flush] 10 ml FLUSH ASDIRECTED PRN syringe [Rx] Acetaminophen/HYDROcodone [[place] 325-5 MG] 1 tab PO Q8H PRN tablet 08/04/17 [Rx ] Furosemide [Lasix] 20 mg PO BIDDIURETIC tablet 08/04/17 [Rx] Hydroxychloroquine [Plaquenil] 200 mg PO BID tablet 08/04/17 [Rx] Insulin Detemir [Levemir] 16 unit SUBCUT BEDTIME pen 08/04/17 [Rx] Levothyroxine [Synthroid] 88 mcg PO ACBREAKFAST tablet 08/04/17 [Rx] Losartan [Cozaar] 25 mg PO DAILY tablet 08/04/17 [Rx] Multivitamins [Tab-A-Ha] 1 tab PO DAILY tablet 08/04/17 [Rx] Ondansetron [Zofran] 4 mg IVPUSH Q6H PRN vial 08/04/17 [Rx] Simvastatin [Zocor] 10 mg PO BEDTIME tablet 08/04/17 [Rx] glipiZIDE [Glucotrol XL] 20 mg PO DAILY tab.er 08/04/17 [Rx] Patient Handouts: Gonzalez Catheter Care, Adult, Transurethral Resection of the Prostate, Transurethral Resection of the Prostate, Care After Referrals: Nirmal Hart MD [Physician] - 09/06/17 10:00 am (one month follow up) - Patient Data Vitals - Most Recent: Last Vital Signs Temp 98.4 F 08/04/17 07:00 Pulse 69 08/04/17 07:17 Resp 16 08/04/17 07:00 BP 140/61 08/04/17 07:17 Pulse Ox 95 08/04/17 07:00 Weight - Most Recent: 240 lb I&O - Last 24 hours: Intake & Output 08/03/17 08/04/17 08/04/17 22:59 06:59 14:59 Intake Total 800 400 Output Total 1500 1050 Balance -1500 -250 400 Lab Results - Last 24 hrs: Laboratory Results - last 24 hr 08/03/17 08/03/17 08/03/17 Range/Units 17:28 17:33 20:19 POC Glucose 204 H 228 H (65-110) mg/dl Specimen Type Urinblad Urine Color Urine Appearance Slightly cloudy Urine pH 6.0 (5.0-9.0) Ur Specific [place] 1.010 (1.005-1.030) Urine Protein Negative (NEGATIVE) mg/dL Urine Glucose (UA) Negative (NEGATIVE) mg/dL Urine Ketones Negative (NEGATIVE) mg/dL Urine Occult Blood Large H (NEGATIVE) Urine Nitrite Negative (NEGATIVE) Urine Bilirubin Negative (NEGATIVE) Urine Urobilinogen 0.2 (0.2-1.0) E.U./dL Ur Leukocyte Esterase Negative (NEGATIVE) Urine RBC Packed /HPF Urine WBC 0-5 /HPF Ur Epithelial Cells Few /LPF Urine Bacteria Rare (NONE TO FEW) /HPF 08/04/17 08/04/17 Range/Units 07:10 11:06 POC Glucose 128 H 261 H* (65-110) mg/dl Specimen Type Urine Color Urine Appearance Urine pH (5.0-9.0) Ur Specific [place] (1.005-1.030) Urine Protein (NEGATIVE) mg/dL Urine Glucose (UA) (NEGATIVE) mg/dL Urine Ketones (NEGATIVE) mg/dL Urine Occult Blood (NEGATIVE) Urine Nitrite (NEGATIVE) Urine Bilirubin (NEGATIVE) Urine Urobilinogen (0.2-1.0) E.U./dL Ur Leukocyte Esterase (NEGATIVE) Urine RBC /HPF Urine WBC /HPF Ur Epithelial Cells /LPF Urine Bacteria (NONE TO FEW) /HPF Med Orders - Current: Current Medications Acetaminophen (Tylenol) 650 mg PO Q4H PRN PRN Reason: Pain Last Admin: 08/03/17 08:18 Dose: 650 mg Hydrocodone Bitart/Acetaminophen ([place] 325-5 Mg) 1 tab PO Q8H PRN PRN Reason: Pain Last Admin: 08/03/17 02:13 Dose: 1 tab Carvedilol (Coreg) 12.5 mg PO BID REPLACED BY [facility] Last Admin: 08/04/17 07:17 Dose: 12.5 mg Finasteride (Proscar) 5 mg PO DAILY REPLACED BY [facility] Last Admin: 08/04/17 07:11 Dose: 5 mg Furosemide (Lasix) 20 mg PO BIDDIURETIC REPLACED BY [facility] Last Admin: 08/04/17 11:05 Dose: 20 mg Glipizide (Glucotrol Xl) 20 mg PO DAILY REPLACED BY [facility] Last Admin: 08/04/17 07:12 Dose: 20 mg Hydroxychloroquine Sulfate (Plaquenil) 200 mg PO BID REPLACED BY [facility] Last Admin: 08/04/17 07:12 Dose: 200 mg Insulin Detemir (Levemir) 16 unit SUBCUT BEDTIME REPLACED BY [facility] Last Admin: 08/03/17 20:21 Dose: 16 unit Levothyroxine Sodium (Synthroid) 88 mcg PO ACBREAKFAST REPLACED BY [facility] Last Admin: 08/04/17 07:11 Dose: 88 mcg Losartan Potassium (Cozaar) 25 mg PO DAILY REPLACED BY [facility] Last Admin: 08/04/17 07:13 Dose: 25 mg Morphine Sulfate (Morphine) 2 mg IVPUSH Q2H PRN PRN Reason: Pain Multivitamins/Minerals/Vitamin C (Tab-A-Ha) 1 tab PO DAILY REPLACED BY [facility] Last Admin: 08/04/17 07:12 Dose: 1 tab Nitroglycerin (Nitrostat) 0.4 mg SL ASDIRECTED PRN PRN Reason: Chest Pain Omeprazole (Omeprazole) 20 mg PO DAILY REPLACED BY [facility] Last Admin: 08/04/17 07:12 Dose: 20 mg Ondansetron HCl (Zofran) 4 mg IVPUSH Q6H PRN PRN Reason: Nausea Simvastatin (Zocor) 10 mg PO BEDTIME REPLACED BY [facility] Last Admin: 08/03/17 20:23 Dose: 10 mg Sodium Chloride (Saline Flush) 10 ml FLUSH ASDIRECTED PRN PRN Reason: Keep Vein Open Discontinued Medications Bupivacaine HCl/Dextrose (Marcaine 0.75% Spinal) 1.6 ml .ROUTE .[facility] ONE Stop: 08/02/17 08:31 Cefazolin Sodium (Ancef) 2 gm .ROUTE .[facility] ONE Stop: 08/02/17 08:31 Fentanyl (Sublimaze) Confirm Administered Dose 100 mcg .ROUTE .[facility] ONE Stop: 08/02/17 08:21 Last Admin: 08/02/17 14:04 Dose: Not Given Fentanyl (Sublimaze) 100 mcg .ROUTE .[facility] ONE Stop: 08/02/17 08:31 Lactated Ringer's (Ringers, Lactated) 1,000 mls @ 70 mls/hr IV ASDIRECTED REPLACED BY [facility] Last Admin: 08/02/17 08:38 Dose: 70 mls/hr Sodium Chloride (Normal Saline) 1,000 mls @ 75 mls/hr IV ASDIRECTED REPLACED BY [facility] Last Admin: 08/02/17 18:59 Dose: 75 mls/hr Lidocaine HCl (Glydo) [address] ONE Stop: 08/02/17 09:16 Last Admin: 08/02/17 09:15 Dose: 11 ml Lidocaine HCl (Xylocaine-Mpf 1%) 2 ml .[address] .[facility] ONE Stop: 08/02/17 08:31 Midazolam HCl (Versed 1 Mg/Ml) Confirm Administered Dose 2 mg .ROUTE .[facility] ONE Stop: 08/02/17 08:21 Last Admin: 08/02/17 14:05 Dose: Not Given Midazolam HCl (Versed 1 Mg/Ml) 2 mg .ROUTE .[facility] ONE Stop: 08/02/17 08:31 Propofol (Diprivan 20 Ml) Confirm Administered Dose 400 mg .ROUTE .[facility] ONE Stop: 08/02/17 08:21 Last Admin: 08/02/17 14:04 Dose: Not Given Propofol (Diprivan 20 Ml) 400 mg .ROUTE .[facility] ONE Stop: 08/02/17 08:31 *Q Meaningful Use (DIS) - VTE *Q VTE Criteria *Q: - Stroke *Q Stroke Criteria *Q: - AMI *Q AMI Criteria *Q:
== END 2017-08-04 13:13 | disposition critical access hospital (66) ==
LOC: LL.SDS 07:51 → LL.MS 11:53
PROVIDERS: ADMIT Urology; ATTEND Family Medicine
DX: N40.0 Benign prostatic hyperplasia without lower urinary tract symptoms (principal); R33.9 Retention of urine, unspecified; J44.9 Chronic obstructive pulmonary disease, unspecified; I10 Essential (primary) hypertension; E11.42 Type 2 diabetes mellitus with diabetic polyneuropathy; Z88.8 Allergy status to other drugs, medicaments and biological substances; Z91.018 Allergy to other foods; Z91.010 Allergy to peanuts; Z79.82 Long term (current) use of aspirin; Z79.4 Long term (current) use of insulin; Z79.899 Other long term (current) drug therapy
CPT/HCPCS: 51702; 52601; 81001; 82962; A4216; A9270; G0378; J0690; J1815; J2250; J2704; J3010; J7030; J7120; 00914; 88305; 99217; 99218

== ENCOUNTER 2021-12-11 14:58 | Emergency (ER) | payer MEDICARE, BC ==
[2021-12-11] MEDS: Lactated Ringers 1,000 ML IV SCH (15:28)
[2021-12-11] MEDS: Morphine 2 MG/ML SYRINGE IVPUSH ONE (15:30)
[2021-12-11] MEDS: Sodium Chloride 0.9% 10 ML Syringe FLUSH PRN (15:36)
[2021-12-11 15:44] LABS: CHLORIDE,CL 106 mmol/L (98-107); SODIUM,NA 141 mmol/L (136-145)
[2021-12-11 16:23] VITALS: BP 138/65; PULSE 78
[2021-12-11] MEDS: Lidocaine 2% HCl 11 ML Jelly Filled Syringe ONE (18:00)
== END 2021-12-11 18:10 ==
LOC: LL.ED 14:58
DX: S72.001A Fracture of unspecified part of neck of right femur, initial encounter for closed fracture (principal); I25.10 Atherosclerotic heart disease of native coronary artery without angina pectoris; I25.2 Old myocardial infarction; J44.9 Chronic obstructive pulmonary disease, unspecified; I10 Essential (primary) hypertension; E11.9 Type 2 diabetes mellitus without complications; Z79.899 Other long term (current) drug therapy; Z79.4 Long term (current) use of insulin; Z88.8 Allergy status to other drugs, medicaments and biological substances; Z91.010 Allergy to peanuts; Z91.018 Allergy to other foods; W01.0XXA Fall on same level from slipping, tripping and stumbling without subsequent striking against object, initial encounter
CPT/HCPCS: 36415; 51702; 72170; 73502; 80053; 82947; 83735; 85025; 85610; 93005; 93010; 96374; 99284; 99285; A9270; J2270; J3490; J7120

== ENCOUNTER 2021-12-15 15:49 | Inpatient (IN) | payer MEDICARE, BC ==
[2021-12-16] MEDS ORDERED: Nitroglycerin 0.4 MG Tab.SL SL PRN (15:33)
[2021-12-16] MEDS: Hydroxychloroquine 200 MG Tab PO SCH (18:56)
[2021-12-16] MEDS: Omeprazole 20 MG Cap.CR PO SCH (18:56)
[2021-12-16] MEDS: Carvedilol 12.5 MG Tab PO SCH (18:57)
[2021-12-16] MEDS ORDERED: Insulin Glarg,Human.Rec.Analog 100 Unit/ML SUBCUT SCH (20:00)
[2021-12-16] MEDS: Formoterol/Mometasone 100-5 MCG 8.8 GM Inhaler IH SCH (20:05)
[2021-12-16] MEDS: Acetaminophen/HYDROcodone 325-5 MG Tab PO PRN (20:05)
[2021-12-16] MEDS: Simvastatin 20 MG Tab PO SCH (20:06)
[2021-12-17] MEDS: Acetaminophen/HYDROcodone 325-5 MG Tab PO PRN ×2 (01:10→07:30)
[2021-12-17] MEDS: Enoxaparin 40 MG/0.4 ML Syringe SUBCUT SCH (07:26)
[2021-12-17] MEDS: Aspirin 81 MG Tab.EC PO SCH (07:26)
[2021-12-17] MEDS: Carvedilol 12.5 MG Tab PO SCH ×2 (07:26→17:14)
[2021-12-17] MEDS: Hydroxychloroquine 200 MG Tab PO SCH ×2 (07:27→17:14)
[2021-12-17] MEDS: Levothyroxine 88 MCG Tab PO SCH (07:27)
[2021-12-17] MEDS: Losartan 25 MG Tab PO SCH (07:28)
[2021-12-17] MEDS: Omeprazole 20 MG Cap.CR PO SCH ×2 (07:28→17:14)
[2021-12-17] MEDS: Furosemide 20 MG Tab PO SCH (07:29)
[2021-12-17] MEDS: Magnesium Oxide 400 MG Tab PO SCH (07:29)
[2021-12-17] MEDS: Tamsulosin 0.4 MG Cap.ER PO SCH (07:30)
[2021-12-17] MEDS: Formoterol/Mometasone 100-5 MCG 8.8 GM Inhaler IH SCH ×2 (07:31→19:19)
[2021-12-17 08:07] LABS: HEMOGLOBIN A1C 6.8 % (4.3-5.7)
[2021-12-17 08:17] LABS: CHLORIDE,CL 99 mmol/L (98-107); SODIUM,NA 135 mmol/L (136-145)
[2021-12-17 08:20] LABS: ANION GAP 10.8 meq/L (7-15); ESTIMATED GFR > 60 mL/min
[2021-12-17] MEDS ORDERED: 50% Dextrose in Water 50 ML Syringe IVPUSH PRN (09:22)
[2021-12-17] MEDS ORDERED: Glucagon,Human Recombinant 1 MG Vial IM PRN (09:22)
[2021-12-17] MEDS: Polyethylene Glycol 3350 Powder 17 GM Packet PO SCH (09:43)
[2021-12-17] MEDS: Menthol 10%/Methyl Salicylate 30% 85 GM Tube TOP PRN (17:13)
[2021-12-17] MEDS: Simvastatin 20 MG Tab PO SCH (19:19)
[2021-12-17] MEDS: Acetaminophen 325 MG Tab PO PRN (19:20)
[2021-12-17] MEDS: Insulin Glarg,Human.Rec.Analog 100 Unit/ML SUBCUT SCH (19:21)
[2021-12-18] MEDS: Acetaminophen/HYDROcodone 325-5 MG Tab PO PRN ×2 (02:54→20:11)
[2021-12-18] MEDS: Hydroxychloroquine 200 MG Tab PO SCH ×2 (08:05→17:35)
[2021-12-18] MEDS: Tamsulosin 0.4 MG Cap.ER PO SCH (08:05)
[2021-12-18] MEDS: Enoxaparin 40 MG/0.4 ML Syringe SUBCUT SCH (08:05)
[2021-12-18] MEDS: Carvedilol 12.5 MG Tab PO SCH ×2 (08:05→17:36)
[2021-12-18] MEDS: Aspirin 81 MG Tab.EC PO SCH (08:05)
[2021-12-18] MEDS: Furosemide 20 MG Tab PO SCH (08:05)
[2021-12-18] MEDS: Polyethylene Glycol 3350 Powder 17 GM Packet PO SCH (08:05)
[2021-12-18] MEDS: Omeprazole 20 MG Cap.CR PO SCH ×2 (08:06→17:35)
[2021-12-18] MEDS: Magnesium Oxide 400 MG Tab PO SCH (08:06)
[2021-12-18] MEDS: Levothyroxine 88 MCG Tab PO SCH (08:06)
[2021-12-18] MEDS: Losartan 25 MG Tab PO SCH (08:06)
[2021-12-18] MEDS: Formoterol/Mometasone 100-5 MCG 8.8 GM Inhaler IH SCH ×2 (08:06→20:24)
[2021-12-18] MEDS: Simvastatin 20 MG Tab PO SCH (20:11)
[2021-12-18] MEDS: Insulin Glarg,Human.Rec.Analog 100 Unit/ML SUBCUT SCH (20:12)
[2021-12-18] MEDS: Menthol 10%/Methyl Salicylate 30% 85 GM Tube TOP PRN (20:14)
[2021-12-19] MEDS: Polyethylene Glycol 3350 Powder 17 GM Packet PO SCH (08:03)
[2021-12-19] MEDS: Enoxaparin 40 MG/0.4 ML Syringe SUBCUT SCH (08:03)
[2021-12-19] MEDS: Formoterol/Mometasone 100-5 MCG 8.8 GM Inhaler IH SCH ×2 (08:03→20:01)
[2021-12-19] MEDS: Hydroxychloroquine 200 MG Tab PO SCH ×2 (08:04→17:29)
[2021-12-19] MEDS: Omeprazole 20 MG Cap.CR PO SCH ×2 (08:04→17:29)
[2021-12-19] MEDS: Carvedilol 12.5 MG Tab PO SCH ×2 (08:05→17:29)
[2021-12-19] MEDS: Losartan 25 MG Tab PO SCH (08:05)
[2021-12-19] MEDS: Levothyroxine 88 MCG Tab PO SCH (08:05)
[2021-12-19] MEDS: Magnesium Oxide 400 MG Tab PO SCH (08:06)
[2021-12-19] MEDS: Tamsulosin 0.4 MG Cap.ER PO SCH (08:06)
[2021-12-19] MEDS: Aspirin 81 MG Tab.EC PO SCH (08:06)
[2021-12-19] MEDS: Furosemide 20 MG Tab PO SCH (08:06)
[2021-12-19] MEDS: Acetaminophen/HYDROcodone 325-5 MG Tab PO PRN ×2 (13:09→22:12)
[2021-12-19] MEDS: Simvastatin 20 MG Tab PO SCH (20:02)
[2021-12-19] MEDS: Insulin Glarg,Human.Rec.Analog 100 Unit/ML SUBCUT SCH (20:06)
[2021-12-19] MEDS: Menthol 10%/Methyl Salicylate 30% 85 GM Tube TOP PRN (21:55)
[2021-12-20] MEDS: Omeprazole 20 MG Cap.CR PO SCH ×2 (07:32→17:29)
[2021-12-20] MEDS: Magnesium Oxide 400 MG Tab PO SCH (07:32)
[2021-12-20] MEDS: Hydroxychloroquine 200 MG Tab PO SCH ×2 (07:32→17:28)
[2021-12-20] MEDS: Enoxaparin 40 MG/0.4 ML Syringe SUBCUT SCH (07:33)
[2021-12-20] MEDS: Levothyroxine 88 MCG Tab PO SCH (07:34)
[2021-12-20] MEDS: Tamsulosin 0.4 MG Cap.ER PO SCH (07:35)
[2021-12-20] MEDS: Furosemide 20 MG Tab PO SCH (07:35)
[2021-12-20] MEDS: Aspirin 81 MG Tab.EC PO SCH (07:35)
[2021-12-20] MEDS: Polyethylene Glycol 3350 Powder 17 GM Packet PO SCH (07:36)
[2021-12-20] MEDS: Losartan 25 MG Tab PO SCH (07:37)
[2021-12-20] MEDS: Carvedilol 12.5 MG Tab PO SCH ×2 (07:37→17:28)
[2021-12-20] MEDS: Formoterol/Mometasone 100-5 MCG 8.8 GM Inhaler IH SCH ×2 (07:40→20:37)
[2021-12-20] MEDS: Menthol 10%/Methyl Salicylate 30% 85 GM Tube TOP PRN ×2 (07:47→22:35)
[2021-12-20] MEDS: Acetaminophen/HYDROcodone 325-5 MG Tab PO PRN ×3 (09:38→22:34)
[2021-12-20] MEDS: Simvastatin 20 MG Tab PO SCH (20:38)
[2021-12-20] MEDS: Insulin Glarg,Human.Rec.Analog 100 Unit/ML SUBCUT SCH (20:40)
[2021-12-21] MEDS: Omeprazole 20 MG Cap.CR PO SCH ×2 (07:00→18:30)
[2021-12-21] MEDS: Formoterol/Mometasone 100-5 MCG 8.8 GM Inhaler IH SCH ×2 (07:00→19:34)
[2021-12-21] MEDS: Enoxaparin 40 MG/0.4 ML Syringe SUBCUT SCH (07:00)
[2021-12-21] MEDS: Hydroxychloroquine 200 MG Tab PO SCH ×2 (07:00→18:29)
[2021-12-21] MEDS: Tamsulosin 0.4 MG Cap.ER PO SCH (07:01)
[2021-12-21] MEDS: Losartan 25 MG Tab PO SCH (07:01)
[2021-12-21] MEDS: Carvedilol 12.5 MG Tab PO SCH ×2 (07:01→18:30)
[2021-12-21] MEDS: Levothyroxine 88 MCG Tab PO SCH (07:02)
[2021-12-21] MEDS: Magnesium Oxide 400 MG Tab PO SCH (07:02)
[2021-12-21] MEDS: Furosemide 20 MG Tab PO SCH (07:02)
[2021-12-21] MEDS: Aspirin 81 MG Tab.EC PO SCH (07:02)
[2021-12-21] MEDS: Polyethylene Glycol 3350 Powder 17 GM Packet PO SCH (07:04)
[2021-12-21] MEDS: Acetaminophen 325 MG Tab PO PRN ×3 (07:07→19:53)
[2021-12-21] MEDS: Menthol 10%/Methyl Salicylate 30% 85 GM Tube TOP PRN (07:13)
[2021-12-21] MEDS: Insulin Glarg,Human.Rec.Analog 100 Unit/ML SUBCUT SCH (19:34)
[2021-12-21] MEDS: Simvastatin 20 MG Tab PO SCH (19:34)
[2021-12-22] MEDS: Polyethylene Glycol 3350 Powder 17 GM Packet PO SCH (07:32)
[2021-12-22] MEDS: Enoxaparin 40 MG/0.4 ML Syringe SUBCUT SCH (07:32)
[2021-12-22] MEDS: Losartan 25 MG Tab PO SCH (07:33)
[2021-12-22] MEDS: Levothyroxine 88 MCG Tab PO SCH (07:34)
[2021-12-22] MEDS: Hydroxychloroquine 200 MG Tab PO SCH ×2 (07:34→17:31)
[2021-12-22] MEDS: Furosemide 20 MG Tab PO SCH (07:34)
[2021-12-22] MEDS: Acetaminophen 325 MG Tab PO PRN (07:35)
[2021-12-22] MEDS: Aspirin 81 MG Tab.EC PO SCH (07:36)
[2021-12-22] MEDS: Tamsulosin 0.4 MG Cap.ER PO SCH (07:36)
[2021-12-22] MEDS: Magnesium Oxide 400 MG Tab PO SCH (07:36)
[2021-12-22] MEDS: Carvedilol 12.5 MG Tab PO SCH ×2 (07:36→17:31)
[2021-12-22] MEDS: Omeprazole 20 MG Cap.CR PO SCH ×2 (07:36→17:31)
[2021-12-22] MEDS: Formoterol/Mometasone 100-5 MCG 8.8 GM Inhaler IH SCH ×2 (07:39→19:56)
[2021-12-22] MEDS: Acetaminophen/HYDROcodone 325-5 MG Tab PO PRN ×2 (14:23→23:09)
[2021-12-22] MEDS: Simvastatin 20 MG Tab PO SCH (19:56)
[2021-12-22] MEDS: Insulin Glarg,Human.Rec.Analog 100 Unit/ML SUBCUT SCH (19:57)
[2021-12-23] MEDS: Polyethylene Glycol 3350 Powder 17 GM Packet PO SCH (07:44)
[2021-12-23] MEDS: Levothyroxine 88 MCG Tab PO SCH (07:45)
[2021-12-23] MEDS: Hydroxychloroquine 200 MG Tab PO SCH ×2 (07:45→16:59)
[2021-12-23] MEDS: Tamsulosin 0.4 MG Cap.ER PO SCH (07:46)
[2021-12-23] MEDS: Furosemide 20 MG Tab PO SCH (07:46)
[2021-12-23] MEDS: Carvedilol 12.5 MG Tab PO SCH ×2 (07:46→16:59)
[2021-12-23] MEDS: Losartan 25 MG Tab PO SCH (07:46)
[2021-12-23] MEDS: Omeprazole 20 MG Cap.CR PO SCH ×2 (07:46→16:59)
[2021-12-23] MEDS: Aspirin 81 MG Tab.EC PO SCH (07:47)
[2021-12-23] MEDS: Enoxaparin 40 MG/0.4 ML Syringe SUBCUT SCH (07:47)
[2021-12-23] MEDS: Magnesium Oxide 400 MG Tab PO SCH (07:47)
[2021-12-23] MEDS: Formoterol/Mometasone 100-5 MCG 8.8 GM Inhaler IH SCH ×2 (07:49→19:16)
[2021-12-23] MEDS: Acetaminophen 325 MG Tab PO PRN ×2 (11:48→21:08)
[2021-12-23] MEDS: Insulin Glarg,Human.Rec.Analog 100 Unit/ML SUBCUT SCH (19:10)
[2021-12-23] MEDS: Simvastatin 20 MG Tab PO SCH (19:15)
[2021-12-24] MEDS: Enoxaparin 40 MG/0.4 ML Syringe SUBCUT SCH (08:11)
[2021-12-24] MEDS: Polyethylene Glycol 3350 Powder 17 GM Packet PO SCH (08:12)
[2021-12-24] MEDS: Magnesium Oxide 400 MG Tab PO SCH (08:13)
[2021-12-24] MEDS: Losartan 25 MG Tab PO SCH (08:13)
[2021-12-24] MEDS: Omeprazole 20 MG Cap.CR PO SCH ×2 (08:14→17:34)
[2021-12-24] MEDS: Levothyroxine 88 MCG Tab PO SCH (08:14)
[2021-12-24] MEDS: Furosemide 20 MG Tab PO SCH (08:14)
[2021-12-24] MEDS: Tamsulosin 0.4 MG Cap.ER PO SCH (08:14)
[2021-12-24] MEDS: Hydroxychloroquine 200 MG Tab PO SCH ×2 (08:14→17:35)
[2021-12-24] MEDS: Formoterol/Mometasone 100-5 MCG 8.8 GM Inhaler IH SCH ×2 (08:15→19:42)
[2021-12-24] MEDS: Carvedilol 12.5 MG Tab PO SCH ×2 (08:15→17:34)
[2021-12-24] MEDS: Aspirin 81 MG Tab.EC PO SCH (08:15)
[2021-12-24] MEDS: Acetaminophen 325 MG Tab PO PRN ×2 (11:32→23:44)
[2021-12-24] MEDS: Insulin Glarg,Human.Rec.Analog 100 Unit/ML SUBCUT SCH (19:41)
[2021-12-24] MEDS: Simvastatin 20 MG Tab PO SCH (19:43)
[2021-12-25] MEDS: Formoterol/Mometasone 100-5 MCG 8.8 GM Inhaler IH SCH ×2 (07:35→20:05)
[2021-12-25] MEDS: Polyethylene Glycol 3350 Powder 17 GM Packet PO SCH (07:36)
[2021-12-25] MEDS: Carvedilol 12.5 MG Tab PO SCH ×2 (07:36→17:15)
[2021-12-25] MEDS: Omeprazole 20 MG Cap.CR PO SCH ×2 (07:36→17:15)
[2021-12-25] MEDS: Enoxaparin 40 MG/0.4 ML Syringe SUBCUT SCH (07:36)
[2021-12-25] MEDS: Levothyroxine 88 MCG Tab PO SCH (07:37)
[2021-12-25] MEDS: Tamsulosin 0.4 MG Cap.ER PO SCH (07:37)
[2021-12-25] MEDS: Aspirin 81 MG Tab.EC PO SCH (07:37)
[2021-12-25] MEDS: Hydroxychloroquine 200 MG Tab PO SCH ×2 (07:37→17:15)
[2021-12-25] MEDS: Magnesium Oxide 400 MG Tab PO SCH (07:37)
[2021-12-25] MEDS: Losartan 25 MG Tab PO SCH (07:38)
[2021-12-25] MEDS: Furosemide 20 MG Tab PO SCH (07:38)
[2021-12-25] MEDS: Acetaminophen 325 MG Tab PO PRN (16:29)
[2021-12-25] MEDS: Insulin Glarg,Human.Rec.Analog 100 Unit/ML SUBCUT SCH (20:05)
[2021-12-25] MEDS: Simvastatin 20 MG Tab PO SCH (20:06)
[2021-12-26] MEDS: Acetaminophen 325 MG Tab PO PRN ×2 (00:09→15:55)
[2021-12-26] MEDS: Enoxaparin 40 MG/0.4 ML Syringe SUBCUT SCH (07:36)
[2021-12-26] MEDS: Formoterol/Mometasone 100-5 MCG 8.8 GM Inhaler IH SCH ×2 (07:36→19:09)
[2021-12-26] MEDS: Aspirin 81 MG Tab.EC PO SCH (07:36)
[2021-12-26] MEDS: Hydroxychloroquine 200 MG Tab PO SCH ×2 (07:37→17:11)
[2021-12-26] MEDS: Tamsulosin 0.4 MG Cap.ER PO SCH (07:37)
[2021-12-26] MEDS: Losartan 25 MG Tab PO SCH (07:37)
[2021-12-26] MEDS: Magnesium Oxide 400 MG Tab PO SCH (07:37)
[2021-12-26] MEDS: Carvedilol 12.5 MG Tab PO SCH ×2 (07:38→17:11)
[2021-12-26] MEDS: Polyethylene Glycol 3350 Powder 17 GM Packet PO SCH (07:38)
[2021-12-26] MEDS: Levothyroxine 88 MCG Tab PO SCH (07:38)
[2021-12-26] MEDS: Furosemide 20 MG Tab PO SCH (07:38)
[2021-12-26] MEDS: Omeprazole 20 MG Cap.CR PO SCH ×2 (07:38→17:11)
[2021-12-26] MEDS: Simvastatin 20 MG Tab PO SCH (19:09)
[2021-12-26] MEDS: Insulin Glarg,Human.Rec.Analog 100 Unit/ML SUBCUT SCH (19:09)
[2021-12-27] MEDS: Acetaminophen 325 MG Tab PO PRN ×3 (02:06→20:22)
[2021-12-27] MEDS: Aspirin 81 MG Tab.EC PO SCH (07:35)
[2021-12-27] MEDS: Furosemide 20 MG Tab PO SCH (07:35)
[2021-12-27] MEDS: Omeprazole 20 MG Cap.CR PO SCH ×2 (07:35→18:09)
[2021-12-27] MEDS: Hydroxychloroquine 200 MG Tab PO SCH ×2 (07:36→18:09)
[2021-12-27] MEDS: Magnesium Oxide 400 MG Tab PO SCH (07:36)
[2021-12-27] MEDS: Carvedilol 12.5 MG Tab PO SCH ×2 (07:37→18:09)
[2021-12-27] MEDS: Losartan 25 MG Tab PO SCH (07:37)
[2021-12-27] MEDS: Tamsulosin 0.4 MG Cap.ER PO SCH (07:38)
[2021-12-27] MEDS: Levothyroxine 88 MCG Tab PO SCH (07:38)
[2021-12-27] MEDS: Enoxaparin 40 MG/0.4 ML Syringe SUBCUT SCH (07:39)
[2021-12-27] MEDS: Polyethylene Glycol 3350 Powder 17 GM Packet PO SCH (07:39)
[2021-12-27] MEDS: Formoterol/Mometasone 100-5 MCG 8.8 GM Inhaler IH SCH ×2 (07:39→20:21)
[2021-12-27] MEDS: Simvastatin 20 MG Tab PO SCH (20:22)
[2021-12-27] MEDS: Insulin Glarg,Human.Rec.Analog 100 Unit/ML SUBCUT SCH (20:26)
[2021-12-28] MEDS: Formoterol/Mometasone 100-5 MCG 8.8 GM Inhaler IH SCH ×2 (07:19→20:08)
[2021-12-28] MEDS: Enoxaparin 40 MG/0.4 ML Syringe SUBCUT SCH (07:20)
[2021-12-28] MEDS: Polyethylene Glycol 3350 Powder 17 GM Packet PO SCH (07:20)
[2021-12-28] MEDS: Omeprazole 20 MG Cap.CR PO SCH ×2 (07:20→17:35)
[2021-12-28] MEDS: Tamsulosin 0.4 MG Cap.ER PO SCH (07:21)
[2021-12-28] MEDS: Hydroxychloroquine 200 MG Tab PO SCH ×2 (07:21→17:35)
[2021-12-28] MEDS: Carvedilol 12.5 MG Tab PO SCH ×2 (07:21→17:35)
[2021-12-28] MEDS: Levothyroxine 88 MCG Tab PO SCH (07:22)
[2021-12-28] MEDS: Aspirin 81 MG Tab.EC PO SCH (07:22)
[2021-12-28] MEDS: Magnesium Oxide 400 MG Tab PO SCH (07:22)
[2021-12-28] MEDS: Losartan 25 MG Tab PO SCH (07:22)
[2021-12-28] MEDS: Acetaminophen 325 MG Tab PO PRN ×2 (07:23→20:18)
[2021-12-28] MEDS: Furosemide 20 MG Tab PO SCH (07:23)
[2021-12-28] MEDS: Simvastatin 20 MG Tab PO SCH (20:08)
[2021-12-28] MEDS: Insulin Glarg,Human.Rec.Analog 100 Unit/ML SUBCUT SCH (20:09)
[2021-12-28] MEDS: Acetaminophen/HYDROcodone 325-5 MG Tab PO PRN (21:41)
[2021-12-29] MEDS: Acetaminophen/HYDROcodone 325-5 MG Tab PO PRN (04:37)
[2021-12-29] MEDS: Calcium Carbonate 750 MG Tab.Chew PO PRN ×2 (09:02→17:54)
[2021-12-29] MEDS ORDERED: Ondansetron 4 MG Tab.DIS PO PRN (10:00)
[2021-12-29] MEDS: Enoxaparin 40 MG/0.4 ML Syringe SUBCUT SCH (10:34)
[2021-12-29] MEDS: Hydroxychloroquine 200 MG Tab PO SCH ×2 (10:36→17:54)
[2021-12-29] MEDS: Levothyroxine 88 MCG Tab PO SCH (10:36)
[2021-12-29] MEDS: Furosemide 20 MG Tab PO SCH (10:36)
[2021-12-29] MEDS: Losartan 25 MG Tab PO SCH (10:36)
[2021-12-29] MEDS: Aspirin 81 MG Tab.EC PO SCH (10:37)
[2021-12-29] MEDS: Magnesium Oxide 400 MG Tab PO SCH (10:38)
[2021-12-29] MEDS: Tamsulosin 0.4 MG Cap.ER PO SCH (10:38)
[2021-12-29] MEDS: Carvedilol 12.5 MG Tab PO SCH ×2 (10:38→17:54)
[2021-12-29] MEDS: Omeprazole 20 MG Cap.CR PO SCH ×2 (10:38→17:54)
[2021-12-29] MEDS: Polyethylene Glycol 3350 Powder 17 GM Packet PO SCH (10:39)
[2021-12-29] MEDS: Formoterol/Mometasone 100-5 MCG 8.8 GM Inhaler IH SCH ×2 (10:42→20:07)
[2021-12-29] MEDS: Simvastatin 20 MG Tab PO SCH (20:07)
[2021-12-29] MEDS: Insulin Glarg,Human.Rec.Analog 100 Unit/ML SUBCUT SCH (20:08)
[2021-12-30] MEDS: Acetaminophen 325 MG Tab PO PRN ×2 (06:34→20:32)
[2021-12-30] MEDS: Formoterol/Mometasone 100-5 MCG 8.8 GM Inhaler IH SCH ×2 (07:14→20:18)
[2021-12-30] MEDS: Enoxaparin 40 MG/0.4 ML Syringe SUBCUT SCH (07:14)
[2021-12-30] MEDS: Losartan 25 MG Tab PO SCH (07:15)
[2021-12-30] MEDS: Aspirin 81 MG Tab.EC PO SCH (07:15)
[2021-12-30] MEDS: Hydroxychloroquine 200 MG Tab PO SCH ×2 (07:15→17:29)
[2021-12-30] MEDS: Magnesium Oxide 400 MG Tab PO SCH (07:15)
[2021-12-30] MEDS: Carvedilol 12.5 MG Tab PO SCH ×2 (07:16→17:30)
[2021-12-30] MEDS: Omeprazole 20 MG Cap.CR PO SCH ×2 (07:17→17:30)
[2021-12-30] MEDS: Levothyroxine 88 MCG Tab PO SCH (07:17)
[2021-12-30] MEDS: Furosemide 20 MG Tab PO SCH (07:17)
[2021-12-30] MEDS: Tamsulosin 0.4 MG Cap.ER PO SCH (07:17)
[2021-12-30] MEDS: Polyethylene Glycol 3350 Powder 17 GM Packet PO SCH (07:19)
[2021-12-30 07:50] LABS: ANION GAP 4.4 meq/L (7-15)
[2021-12-30] MEDS: Ciprofloxacin 500 MG Tab PO SCH ×2 (12:17→17:29)
[2021-12-30] MEDS: Simvastatin 20 MG Tab PO SCH (20:17)
[2021-12-30] MEDS: Insulin Glarg,Human.Rec.Analog 100 Unit/ML SUBCUT SCH (20:18)
[2021-12-31] MEDS: Formoterol/Mometasone 100-5 MCG 8.8 GM Inhaler IH SCH ×2 (08:14→20:55)
[2021-12-31] MEDS: Enoxaparin 40 MG/0.4 ML Syringe SUBCUT SCH (08:14)
[2021-12-31] MEDS: Acetaminophen 325 MG Tab PO PRN ×2 (08:15→21:03)
[2021-12-31] MEDS: Carvedilol 12.5 MG Tab PO SCH ×2 (08:15→18:24)
[2021-12-31] MEDS: Magnesium Oxide 400 MG Tab PO SCH (08:15)
[2021-12-31] MEDS: Omeprazole 20 MG Cap.CR PO SCH ×2 (08:15→18:24)
[2021-12-31] MEDS: Furosemide 20 MG Tab PO SCH (08:15)
[2021-12-31] MEDS: Hydroxychloroquine 200 MG Tab PO SCH ×2 (08:15→18:24)
[2021-12-31] MEDS: Aspirin 81 MG Tab.EC PO SCH (08:15)
[2021-12-31] MEDS: Ciprofloxacin 500 MG Tab PO SCH ×2 (08:16→18:23)
[2021-12-31] MEDS: Tamsulosin 0.4 MG Cap.ER PO SCH (08:16)
[2021-12-31] MEDS: Levothyroxine 88 MCG Tab PO SCH (08:16)
[2021-12-31] MEDS: Losartan 25 MG Tab PO SCH (08:16)
[2021-12-31] MEDS: Simvastatin 20 MG Tab PO SCH (20:54)
[2021-12-31] MEDS: Insulin Glarg,Human.Rec.Analog 100 Unit/ML SUBCUT SCH (20:55)
[2022-01-01] MEDS: Hydroxychloroquine 200 MG Tab PO SCH ×2 (07:28→17:46)
[2022-01-01] MEDS: Aspirin 81 MG Tab.EC PO SCH (07:28)
[2022-01-01] MEDS: Omeprazole 20 MG Cap.CR PO SCH ×2 (07:28→17:46)
[2022-01-01] MEDS: Furosemide 20 MG Tab PO SCH (07:29)
[2022-01-01] MEDS: Losartan 25 MG Tab PO SCH (07:29)
[2022-01-01] MEDS: Ciprofloxacin 500 MG Tab PO SCH ×2 (07:29→17:46)
[2022-01-01] MEDS: Magnesium Oxide 400 MG Tab PO SCH (07:29)
[2022-01-01] MEDS: Enoxaparin 40 MG/0.4 ML Syringe SUBCUT SCH (07:30)
[2022-01-01] MEDS: Carvedilol 12.5 MG Tab PO SCH ×2 (07:30→17:45)
[2022-01-01] MEDS: Tamsulosin 0.4 MG Cap.ER PO SCH (07:30)
[2022-01-01] MEDS: Levothyroxine 88 MCG Tab PO SCH (07:30)
[2022-01-01] MEDS: Formoterol/Mometasone 100-5 MCG 8.8 GM Inhaler IH SCH ×2 (07:31→19:52)
[2022-01-01] MEDS: Polyethylene Glycol 3350 Powder 17 GM Packet PO PRN (07:31)
[2022-01-01] MEDS: Insulin Glarg,Human.Rec.Analog 100 Unit/ML SUBCUT SCH (19:52)
[2022-01-01] MEDS: Simvastatin 20 MG Tab PO SCH (19:53)
[2022-01-01] MEDS: Acetaminophen 325 MG Tab PO PRN (21:41)
[2022-01-01] MEDS: Menthol 10%/Methyl Salicylate 15% 85 GM Tube TOP PRN (21:42)
[2022-01-02] MEDS: Formoterol/Mometasone 100-5 MCG 8.8 GM Inhaler IH SCH ×2 (08:09→21:16)
[2022-01-02] MEDS: Aspirin 81 MG Tab.EC PO SCH (08:10)
[2022-01-02] MEDS: Magnesium Oxide 400 MG Tab PO SCH (08:10)
[2022-01-02] MEDS: Tamsulosin 0.4 MG Cap.ER PO SCH (08:10)
[2022-01-02] MEDS: Ciprofloxacin 500 MG Tab PO SCH ×2 (08:10→17:30)
[2022-01-02] MEDS: Hydroxychloroquine 200 MG Tab PO SCH ×2 (08:10→17:29)
[2022-01-02] MEDS: Losartan 25 MG Tab PO SCH (08:10)
[2022-01-02] MEDS: Furosemide 20 MG Tab PO SCH (08:12)
[2022-01-02] MEDS: Omeprazole 20 MG Cap.CR PO SCH ×2 (08:13→17:29)
[2022-01-02] MEDS: Enoxaparin 40 MG/0.4 ML Syringe SUBCUT SCH (08:13)
[2022-01-02] MEDS: Carvedilol 12.5 MG Tab PO SCH ×2 (08:13→17:29)
[2022-01-02] MEDS: Levothyroxine 88 MCG Tab PO SCH (08:13)
[2022-01-02] MEDS: Polyethylene Glycol 3350 Powder 17 GM Packet PO PRN (08:20)
[2022-01-02] MEDS: Acetaminophen 325 MG Tab PO PRN (21:15)
[2022-01-02] MEDS: Simvastatin 20 MG Tab PO SCH (21:15)
[2022-01-02] MEDS: Insulin Glarg,Human.Rec.Analog 100 Unit/ML SUBCUT SCH (21:15)
[2022-01-02] MEDS: Menthol 10%/Methyl Salicylate 15% 85 GM Tube TOP PRN (21:21)
[2022-01-03 08:23] LABS: ANION GAP 5.6 meq/L (7-15)
[2022-01-03] MEDS: Magnesium Oxide 400 MG Tab PO SCH (09:00)
[2022-01-03] MEDS: Furosemide 20 MG Tab PO SCH (09:01)
[2022-01-03] MEDS: Tamsulosin 0.4 MG Cap.ER PO SCH (09:01)
[2022-01-03] MEDS: Hydroxychloroquine 200 MG Tab PO SCH ×2 (09:01→17:32)
[2022-01-03] MEDS: Losartan 25 MG Tab PO SCH (09:01)
[2022-01-03] MEDS: Aspirin 81 MG Tab.EC PO SCH (09:01)
[2022-01-03] MEDS: Levothyroxine 88 MCG Tab PO SCH (09:01)
[2022-01-03] MEDS: Carvedilol 12.5 MG Tab PO SCH ×2 (09:01→17:32)
[2022-01-03] MEDS: Ciprofloxacin 500 MG Tab PO SCH ×2 (09:01→17:32)
[2022-01-03] MEDS: Omeprazole 20 MG Cap.CR PO SCH ×2 (09:02→17:32)
[2022-01-03] MEDS: Enoxaparin 40 MG/0.4 ML Syringe SUBCUT SCH (09:02)
[2022-01-03] MEDS: Formoterol/Mometasone 100-5 MCG 8.8 GM Inhaler IH SCH ×2 (09:02→19:45)
[2022-01-03] MEDS: Polyethylene Glycol 3350 Powder 17 GM Packet PO PRN (11:42)
[2022-01-03] MEDS: Acetaminophen 325 MG Tab PO PRN ×2 (11:42→22:20)
[2022-01-03] MEDS: Insulin Glarg,Human.Rec.Analog 100 Unit/ML SUBCUT SCH (19:45)
[2022-01-03] MEDS: Simvastatin 20 MG Tab PO SCH (19:45)
[2022-01-04] MEDS: Ciprofloxacin 500 MG Tab PO SCH ×2 (07:23→17:10)
[2022-01-04] MEDS: Furosemide 20 MG Tab PO SCH (07:23)
[2022-01-04] MEDS: Tamsulosin 0.4 MG Cap.ER PO SCH (07:23)
[2022-01-04] MEDS: Hydroxychloroquine 200 MG Tab PO SCH ×2 (07:23→17:10)
[2022-01-04] MEDS: Aspirin 81 MG Tab.EC PO SCH (07:24)
[2022-01-04] MEDS: Losartan 25 MG Tab PO SCH (07:24)
[2022-01-04] MEDS: Omeprazole 20 MG Cap.CR PO SCH ×2 (07:24→17:10)
[2022-01-04] MEDS: Carvedilol 12.5 MG Tab PO SCH ×2 (07:24→17:10)
[2022-01-04] MEDS: Magnesium Oxide 400 MG Tab PO SCH (07:24)
[2022-01-04] MEDS: Levothyroxine 88 MCG Tab PO SCH (07:24)
[2022-01-04] MEDS: Enoxaparin 40 MG/0.4 ML Syringe SUBCUT SCH (07:25)
[2022-01-04] MEDS: Formoterol/Mometasone 100-5 MCG 8.8 GM Inhaler IH SCH ×2 (07:25→20:10)
[2022-01-04] MEDS: Insulin Glarg,Human.Rec.Analog 100 Unit/ML SUBCUT SCH (20:10)
[2022-01-04] MEDS: Simvastatin 20 MG Tab PO SCH (20:11)
[2022-01-04] MEDS: Acetaminophen 325 MG Tab PO PRN (21:14)
[2022-01-05] MEDS: Formoterol/Mometasone 100-5 MCG 8.8 GM Inhaler IH SCH ×2 (07:52→20:14)
[2022-01-05] MEDS: Enoxaparin 40 MG/0.4 ML Syringe SUBCUT SCH (07:52)
[2022-01-05] MEDS: Magnesium Oxide 400 MG Tab PO SCH (07:53)
[2022-01-05] MEDS: Ciprofloxacin 500 MG Tab PO SCH ×2 (07:53→17:08)
[2022-01-05] MEDS: Losartan 25 MG Tab PO SCH (07:53)
[2022-01-05] MEDS: Carvedilol 12.5 MG Tab PO SCH ×2 (07:53→17:08)
[2022-01-05] MEDS: Aspirin 81 MG Tab.EC PO SCH (07:53)
[2022-01-05] MEDS: Levothyroxine 88 MCG Tab PO SCH (07:54)
[2022-01-05] MEDS: Hydroxychloroquine 200 MG Tab PO SCH ×2 (07:54→17:08)
[2022-01-05] MEDS: Tamsulosin 0.4 MG Cap.ER PO SCH (07:54)
[2022-01-05] MEDS: Omeprazole 20 MG Cap.CR PO SCH ×2 (07:54→17:08)
[2022-01-05] MEDS: Furosemide 20 MG Tab PO SCH (07:54)
[2022-01-05] MEDS: Simvastatin 20 MG Tab PO SCH (20:14)
[2022-01-05] MEDS: Insulin Glarg,Human.Rec.Analog 100 Unit/ML SUBCUT SCH (20:15)
[2022-01-05] MEDS: Acetaminophen 325 MG Tab PO PRN (20:22)
[2022-01-06] MEDS: Formoterol/Mometasone 100-5 MCG 8.8 GM Inhaler IH SCH ×2 (07:24→19:56)
[2022-01-06] MEDS: Enoxaparin 40 MG/0.4 ML Syringe SUBCUT SCH (07:25)
[2022-01-06] MEDS: Omeprazole 20 MG Cap.CR PO SCH ×2 (07:25→17:08)
[2022-01-06] MEDS: Levothyroxine 88 MCG Tab PO SCH (07:25)
[2022-01-06] MEDS: Magnesium Oxide 400 MG Tab PO SCH (07:25)
[2022-01-06] MEDS: Aspirin 81 MG Tab.EC PO SCH (07:25)
[2022-01-06] MEDS: Carvedilol 12.5 MG Tab PO SCH ×2 (07:26→17:08)
[2022-01-06] MEDS: Tamsulosin 0.4 MG Cap.ER PO SCH (07:26)
[2022-01-06] MEDS: Hydroxychloroquine 200 MG Tab PO SCH ×2 (07:27→17:09)
[2022-01-06] MEDS: Losartan 25 MG Tab PO SCH (07:27)
[2022-01-06] MEDS: Furosemide 20 MG Tab PO SCH (07:27)
[2022-01-06] MEDS: Insulin Glarg,Human.Rec.Analog 100 Unit/ML SUBCUT SCH (19:56)
[2022-01-06] MEDS: Simvastatin 20 MG Tab PO SCH (19:57)
[2022-01-06] MEDS: Acetaminophen 325 MG Tab PO PRN (22:37)
[2022-01-07] MEDS: Formoterol/Mometasone 100-5 MCG 8.8 GM Inhaler IH SCH (07:37)
[2022-01-07] MEDS: Aspirin 81 MG Tab.EC PO SCH (07:38)
[2022-01-07] MEDS: Enoxaparin 40 MG/0.4 ML Syringe SUBCUT SCH (07:38)
[2022-01-07] MEDS: Hydroxychloroquine 200 MG Tab PO SCH (07:38)
[2022-01-07] MEDS: Tamsulosin 0.4 MG Cap.ER PO SCH (07:38)
[2022-01-07] MEDS: Carvedilol 12.5 MG Tab PO SCH (07:38)
[2022-01-07] MEDS: Magnesium Oxide 400 MG Tab PO SCH (07:38)
[2022-01-07] MEDS: Omeprazole 20 MG Cap.CR PO SCH (07:38)
[2022-01-07] MEDS: Levothyroxine 88 MCG Tab PO SCH (07:38)
[2022-01-07] MEDS: Furosemide 20 MG Tab PO SCH (07:41)
[2022-01-07] MEDS: Losartan 25 MG Tab PO SCH (07:41)
[2022-01-07 07:42] VITALS: BP 0/0; PULSE 0
== END 2022-01-07 13:50 | disposition home or self-care (01) | DRG 561 ==
LOC: LL.MS 12-16 12:25
PROVIDERS: ADMIT Physician Assistant; ATTEND Physician Assistant
DX: Z47.89 Encounter for other orthopedic aftercare (principal); N39.0 Urinary tract infection, site not specified; T83.511A Infection and inflammatory reaction due to indwelling urethral catheter, initial encounter; S72.001D Fracture of unspecified part of neck of right femur, subsequent encounter for closed fracture with routine healing; R33.9 Retention of urine, unspecified; J41.0 Simple chronic bronchitis; H54.7 Unspecified visual loss; I25.10 Atherosclerotic heart disease of native coronary artery without angina pectoris; I10 Essential (primary) hypertension; M19.90 Unspecified osteoarthritis, unspecified site; E11.42 Type 2 diabetes mellitus with diabetic polyneuropathy; Z91.018 Allergy to other foods; Z79.4 Long term (current) use of insulin; Z88.8 Allergy status to other drugs, medicaments and biological substances; Z79.82 Long term (current) use of aspirin; Z79.899 Other long term (current) drug therapy; Z95.1 Presence of aortocoronary bypass graft; I25.2 Old myocardial infarction; Z85.828 Personal history of other malignant neoplasm of skin; Z86.19 Personal history of other infectious and parasitic diseases; Z98.49 Cataract extraction status, unspecified eye; Z98.890 Other specified postprocedural states
CPT/HCPCS: 36415; 51798; 80048; 80053; 81001; 82947; 83036; 83605; 83735; 84443; 85025; 86140; 87086; 87088; 87186; 94640; 97110-GO; 97110-GP; 97162-GP; 97166-GO; 97530-GO; 97530-GP; 97535-GO; A9270-GY; J1650; J1815-GY

== ENCOUNTER 2023-04-06 08:51 | Day surgery (SDC) | payer MEDICARE, BC ==
[~2023-04-06 08:51] MED LIST changes: +Midazolam 1 MG/ML 2 ML SDV ONE; +Propofol 200 MG/20 ML SDV ONE; -Sodium Chloride 0.9% 10 ML Syringe FLUSH PRN
[2023-04-06] MEDS ORDERED: Sodium Chloride 0.9% 10 ML Syringe FLUSH PRN (09:00)
[2023-04-06] MEDS: Lactated Ringers 1,000 ML IV SCH (09:30)
[2023-04-06] MEDS ORDERED: Glycopyrrolate 0.2 MG/ML SDV IVPUSH ONE (10:30)
[2023-04-06 13:54] VITALS: BP 143/78; PULSE 72
== END 2023-04-06 11:35 | disposition home or self-care (01) ==
LOC: LL.SDS 08:51
PROVIDERS: ATTEND Surgery
DX: K29.50 Unspecified chronic gastritis without bleeding (principal); K31.7 Polyp of stomach and duodenum; I10 Essential (primary) hypertension; I25.10 Atherosclerotic heart disease of native coronary artery without angina pectoris; K21.9 Gastro-esophageal reflux disease without esophagitis; M19.90 Unspecified osteoarthritis, unspecified site; E11.42 Type 2 diabetes mellitus with diabetic polyneuropathy; E03.9 Hypothyroidism, unspecified; Z88.8 Allergy status to other drugs, medicaments and biological substances; Z91.010 Allergy to peanuts; Z91.018 Allergy to other foods; Z79.4 Long term (current) use of insulin; Z79.82 Long term (current) use of aspirin; Z79.890 Hormone replacement therapy
CPT/HCPCS: 00731; 82947; 88305; 88342; J2250; J2704; J3490; J7120